=== PATIENT | male | born 1970 | race Caucasian/White ===

== ENCOUNTER 2017-10-04 17:48 | Emergency (ER) | payer SELFPAY ==
[2017-10-04] MEDS ORDERED: NS 0.9% 1000 ML* 1,000 ML IV ONE ×2 (18:17→18:58)
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
[2017-10-04 18:39] LABS: Hematocrit 47 % (42-52); Hemoglobin 16.1 g/dl (14.0-18.0); Mean Corpuscular HGB Conc 34 g/dl (31-36); Mean Corpuscular Hemoglobin 33 pg (27-31); Mean Corpuscular Volume 97 fL (80-94); Red Blood Count 4.89 10^6/ul (4.0-5.4); Red Cell Distribution Width 14 % (10.5-15); White Blood Count 4.8 10^3/ul (3.5-10.8)
[2017-10-04 18:50] LABS: EGFR Non-African American 134.6 (>60)
[2017-10-04 19:05] LABS: ABS Basophils 0 10^3/ul (0-0.2); ABS Eosinophils 0.1 10^3/ul (0-0.6); ABS Monocytes 0.5 10^3/ul (0-0.8); ABS Neutrophils 2.2 10^3/ul (1.5-7.7); ABS Nucleated RBC 0 10^3/ul; Eosinophil % 1.2 % (0-6); Lymphocyte % 41.5 % (25-47); Mean Platelet Volume 7 um3 (7.4-10.4); Nucleated Red Blood Cells % 0; Platelet Count 50 10^3/ul (150-450)
[2017-10-04] MEDS ORDERED: Iohexol 300* (CONTRAST) 10 ML SDV IV ONE (19:41)
--- NOTE | 2017-10-04 20:54 | RAD ---
INDICATION: Left lower quadrant pain COMPARISON: None TECHNIQUE: Axial source images were obtained from the hemidiaphragms to the symphysis pubis following administration of oral and intravenous contrast. 100 mL Omnipaque 300 was utilized. Coronal and sagittal reconstructed images were acquired. Lung bases: There is a small infiltrate in the left lung base.. Liver: The liver is normal in size. There is hepatic steatosis There are no masses. There is no ductal dilatation. Gallbladder: There are no calcified gallstones. There is no evidence of wall thickening or pericholecystic fluid. Spleen: The spleen is normal in size. There are no masses. Pancreas: There is no focal pancreatic mass or ductal dilatation. Adrenal glands: There is no evidence of adrenal mass. Kidneys: The kidneys are normal in size and position. There are prompt nephrograms and there is prompt excretion bilaterally. There are no renal parenchymal masses. There is no evidence of nephrolithiasis. Adenopathy: There is no evidence of adenopathy by size criteria. Fluid collections: There are no free or localized fluid collections. Vessels:There are no significant atherosclerotic changes involving the aorta. There is no focal aneurysm. The iliac vessels are normal in caliber. The IVC appears normal. GI tract: There are no acute CT bowel findings. There is no obstruction. The stomach and small bowel appear normal. The lower GI tract is remarkable for scattered diverticula.. The cecum, ileocecal valve, and terminal ileum appear normal. The appendix is visualized and appear normal. Pelvic organs: The prostate and seminal vesicles appear normal Bladder: There are no bladder masses. Abdominal and pelvic soft tissues: The extraperitoneal abdominal and pelvic soft tissues appear normal.. Osseous structures: There are no acute osseous findings. Other: None IMPRESSION: NO ACUTE CT FINDINGS. SCATTERED DIVERTICULA OF THE SIGMOID COLON. HEPATIC STEATOSIS.
[2017-10-04] MEDS ORDERED: Lidocaine 2% VISCOUS* 15 ML UDC PO ONE (21:22)
[2017-10-04] MEDS ORDERED: Omeprazole CAP* 20 MG PO ONE (21:22)
[2017-10-04] MEDS ORDERED: Al Hydrox/Mg Hydrox/Simet LIQ* 30 ML UDC PO ONE (21:22)
[2017-10-04 21:32] VITALS: BP 124/84
[2017-10-04 22:12] LABS: Urine Appearance Clear; Urine Blood 2+ (Negative); Urine Color Straw; Urine Ketones Negative (Negative); Urine Protein Negative (Negative); Urine Specific Gravity 1.004 (1.010-1.030); Urine Urobilinogen Negative (Negative)
== END 2017-10-04 21:52 | disposition home or self-care (01) ==
LOC: ED 17:48
DX: R10.32 Left lower quadrant pain (principal); Z87.19 Personal history of other diseases of the digestive system; F17.210 Nicotine dependence, cigarettes, uncomplicated; R11.2 Nausea with vomiting, unspecified; R19.7 Diarrhea, unspecified
CPT/HCPCS: 36415; 74177; 80053; 81003; 81015; 83690; 85025; 85060; 86140; 99284; A9270-GY; Q9967

== ENCOUNTER 2018-01-01 09:36 | Emergency (ER) | payer OTHER ==
[2018-01-01] MEDS ORDERED: NS 0.9% 1000 ML* 1,000 ML IV ONE (10:15)
[2018-01-01] MEDS ORDERED: Albuterol/Ipratropium NEB.SOL* Albuterol 2.5 MG/Ipratropium 0.5 MG 3 ML INH ONE (10:15)
--- NOTE | 2018-01-01 10:45 | RAD ---
HISTORY: Shortness of breath COMPARISONS: May 11, 2016 VIEWS: 1: frontal portable view of the chest at 10:26 AM FINDINGS: LINES AND TUBES: None. CARDIOMEDIASTINAL SILHOUETTE: The cardiomediastinal silhouette is normal for portable technique. PLEURA: There is right apical pleural thickening, with improved aeration compared to the previous examination. There is hyperinflation. LUNG PARENCHYMA: The lungs are clear. ABDOMEN: The upper abdomen is clear. There is no subphrenic gas. BONES AND SOFT TISSUES: No bone or soft tissue abnormalities are noted. IMPRESSION: 1. RIGHT APICAL PLEURAL THICKENING, IMPROVED FROM THE PREVIOUS EXAMINATION. 2. COPD.
[2018-01-01] MEDS ORDERED: methylPREDNISolone 125 MG* 2 ML VIAL IV ONE (10:48)
[2018-01-01 11:02] LABS: ABS Basophils 0.1 10^3/ul (0-0.2); ABS Eosinophils 0 10^3/ul (0-0.6); ABS Lymphocytes 1.2 10^3/ul (1.0-4.8); ABS Monocytes 0.5 10^3/ul (0-0.8); ABS Neutrophils 3.7 10^3/ul (1.5-7.7); ABS Nucleated RBC 0 10^3/ul; Eosinophil % 0.5 % (0-6); Hematocrit 44 % (42-52); Hemoglobin 15.1 g/dl (14.0-18.0); Lymphocyte % 22.2 % (25-47); Mean Corpuscular HGB Conc 34 g/dl (31-36); Mean Corpuscular Hemoglobin 33 pg (27-31); Mean Corpuscular Volume 98 fL (80-94); Nucleated Red Blood Cells % 0; Platelet Count 327 10^3/ul (150-450); Red Blood Count 4.54 10^6/ul (4.0-5.4); Red Cell Distribution Width 13 % (10.5-15); White Blood Count 5.5 10^3/ul (3.5-10.8)
[2018-01-01 11:11] LABS: INR 0.88 (0.77-1.02)
[2018-01-01 11:20] LABS: EGFR Non-African American 105.1 (>60)
[2018-01-01 13:21] LABS: Urine Appearance Clear; Urine Blood 2+ (Negative); Urine Color Yellow; Urine Ketones Trace (Negative); Urine Protein 2+(100 mg/dL) (Negative); Urine Urobilinogen Negative (Negative)
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
[2018-01-01 14:13] VITALS: BP 165/114
== END 2018-01-01 14:18 | disposition home or self-care (01) ==
LOC: ED 09:36
DX: J40 Bronchitis, not specified as acute or chronic (principal); R05 Cough; R06.02 Shortness of breath; F17.210 Nicotine dependence, cigarettes, uncomplicated
CPT/HCPCS: 36415; 71045; 80053; 81003; 81015; 83605; 84484; 85025; 85384; 85610; 85730; 86140; 87040; 93005; 96374; 99282; A9270-GY; J2930

== ENCOUNTER 2018-01-25 20:46 | Emergency (ER) | payer MEDICAID, OTHER ==
[2018-01-25] MEDS ORDERED: Albuterol/Ipratropium NEB.SOL* Albuterol 2.5 MG/Ipratropium 0.5 MG 3 ML INH ONE (21:08)
[2018-01-25] MEDS ORDERED: Dexamethasone IV* 4 MG/ML 1 ML (4 MG) IV SLOW PU ONE (21:08)
--- NOTE | 2018-01-25 21:30 | RAD ---
INDICATION: Chest pain. COMPARISON: Comparison is made with prior studies from May 11, 2016 and January 01, 2018. TECHNIQUE: A portable view of the chest was obtained. FINDINGS: Cardiac and mediastinal contours appear to be within normal limits. The lungs are hyperinflated. There is a curvilinear area of increased density and pleural thickening at the right lung apex which is unchanged from the recent prior exam although improved from the study from 2016 likely representing residual scarring. No pleural effusion is present. IMPRESSION: FINDINGS CONSISTENT WITH COPD, NO EVIDENCE FOR ACUTE FINDING.
[2018-01-25 22:52] VITALS: BP 112/74
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
== END 2018-01-25 22:51 | disposition home or self-care (01) ==
LOC: ED 20:46
DX: J44.9 Chronic obstructive pulmonary disease, unspecified (principal); R06.02 Shortness of breath; R05 Cough; F17.210 Nicotine dependence, cigarettes, uncomplicated
CPT/HCPCS: 71045; 96374; 99282; A9270-GY; J1100

== ENCOUNTER 2018-02-08 16:23 | Inpatient (IN) | payer SELFPAY ==
--- NOTE | 2018-02-08 16:52 | RAD ---
INDICATION: Chest pain COMPARISON: January 25, 2018 TECHNIQUE: An AP portable view obtained at 1639 hours is submitted. FINDINGS: Bones/Soft Tissues: There are no acute bony findings. Cardiomediastinal: The cardiomediastinal silhouette is normal. Lungs: There are no infiltrates. There is hyperinflation Pleura: There are no pleural effusions. Other: None IMPRESSION: HYPERINFLATION. NO ACTIVE DISEASE.
[2018-02-08 17:00] LABS: ABS Basophils 0.1 10^3/ul (0-0.2); ABS Eosinophils 0 10^3/ul (0-0.6); ABS Lymphocytes 1.5 10^3/ul (1.0-4.8); ABS Monocytes 0.6 10^3/ul (0-0.8); ABS Neutrophils 6.2 10^3/ul (1.5-7.7); ABS Nucleated RBC 0 10^3/ul; Eosinophil % 0.4 % (0-6); Hematocrit 43 % (42-52); Hemoglobin 14.6 g/dl (14.0-18.0); Lymphocyte % 17.9 % (25-47); Mean Corpuscular HGB Conc 34 g/dl (31-36); Mean Corpuscular Hemoglobin 33 pg (27-31); Mean Corpuscular Volume 96 fL (80-94); Nucleated Red Blood Cells % 0; Red Blood Count 4.47 10^6/ul (4.00-5.40); Red Cell Distribution Width 14 % (10.5-15); White Blood Count 8.5 10^3/ul (3.5-10.8)
[2018-02-08 17:15] LABS: EGFR Non-African American 134.1 (>60)
[2018-02-08] MEDS ORDERED: Albuterol/Ipratropium NEB.SOL* Albuterol 2.5 MG/Ipratropium 0.5 MG 3 ML INH ONE ×2 (17:47→17:48)
[2018-02-08] MEDS ORDERED: methylPREDNISolone 125 MG* 2 ML VIAL IV ONE (17:47)
[2018-02-08 17:53] LABS: Mean Platelet Volume 6.5 um3 (7.4-10.4); Platelet Count 57 10^3/ul (150-450)
[2018-02-08] MEDS ORDERED: Nitroglycerin TAB 0.4 MG* 0.4 MG TAB SL ONE (18:07)
[2018-02-08] MEDS ORDERED: Ondansetron INJ* 2 MG/ML VIAL IV PRN (18:50)
[2018-02-08] MEDS ORDERED: Albuterol 2.5 MG/3 ML NEB.SOL* (0.083%) INH PRN (18:50)
[2018-02-08] MEDS ORDERED: Acetaminophen TAB* 325 MG PO PRN ×2 (18:50→19:05)
[2018-02-08] MEDS ORDERED: Benzonatate CAP* 100 MG PO PRN (18:50)
[2018-02-08] MEDS ORDERED: Nicotine Inhaler* 10 MG AMP INH PRN (18:57)
[2018-02-08] MEDS ORDERED: Mouth Piece, Nicotine* 1 EACH CARTRIDGE INH PRN (18:57)
[2018-02-08 19:44] LABS: INR 0.85 (0.77-1.02)
[2018-02-08] MEDS ORDERED: LORazepam TAB(*) 1 MG PO SCH (20:00)
[2018-02-08] MEDS: guaiFENesin ER TAB 600 MG PO SCH (20:55)
[2018-02-08] MEDS: Thiamine TAB* 100 MG TAB PO SCH (20:56)
[2018-02-08] MEDS: Folic Acid TAB* 1 MG PO SCH (20:56)
[2018-02-08] MEDS: Multivitamins/Minerals TAB PO SCH (21:05)
[2018-02-08] MEDS: DOXYcycline IV* 100 MG in NS 0.9% 250 ML* 250 ML IVPB SCH (21:07)
[2018-02-08] MEDS: NS 0.9% 1000 ML* 1,000 ML IV SCH (22:44)
[2018-02-08 22:50] LABS: Urine Appearance Cloudy; Urine Blood 3+ (Negative); Urine Color Yellow; Urine Ketones 1+ (Negative); Urine Protein 2+(100 mg/dL) (Negative); Urine Specific Gravity 1.013 (1.010-1.030); Urine Urobilinogen Negative (Negative)
[2018-02-08] MEDS: Albuterol/Ipratropium NEB.SOL* Albuterol 2.5 MG/Ipratropium 0.5 MG 3 ML INH SCH (23:06)
[2018-02-08] MEDS: Mometasone/Formoter 200/5 MDI INH SCH (23:06)
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
[2018-02-09] MEDS: Albuterol/Ipratropium NEB.SOL* Albuterol 2.5 MG/Ipratropium 0.5 MG 3 ML INH SCH ×6 (03:00→23:10)
[2018-02-09 05:31] LABS: ABS Basophils 0 10^3/ul (0-0.2); ABS Eosinophils 0 10^3/ul (0-0.6); ABS Lymphocytes 0.3 10^3/ul (1.0-4.8); ABS Monocytes 0.1 10^3/ul (0-0.8); ABS Nucleated RBC 0 10^3/ul; Eosinophil % 0 % (0-6); Hematocrit 42 % (42-52); Hemoglobin 14.6 g/dl (14.0-18.0); Lymphocyte % 9.5 % (25-47); Mean Corpuscular HGB Conc 35 g/dl (31-36); Mean Corpuscular Hemoglobin 33 pg (27-31); Mean Corpuscular Volume 96 fL (80-94); Nucleated Red Blood Cells % 0.1; Platelet Count 48 10^3/ul (150-450); Red Cell Distribution Width 14 % (10.5-15); White Blood Count 3.4 10^3/ul (3.5-10.8)
[2018-02-09 05:47] LABS: EGFR Non-African American 163.1 (>60)
[2018-02-09] MEDS: Mometasone/Formoter 200/5 MDI INH SCH ×2 (07:07→19:18)
--- NOTE | 2018-02-09 08:42 | PN ---
Subjective Date of Service: 02/09/18 Interval History: Patient reports he feels better today with less SOB but continues to c/o sob and chest tightness, report cough but states this is chronic, he states he has been experiencing occasional hemopytosis for "weeks to months" stating it is not everyday and usually only in the morning. Some sputum production. Denies recent fever/chills. No N/V/D. Denies orthopnea. Reports last drink yesterday prior to coming in. Denies hx of seizures or delirium tremens. Objective Active Medications: Acetaminophen (Tylenol Tab*) 650 mg PO Q4H PRN PRN Reason: PAIN Albuterol (Ventolin 2.5 Mg/3 Ml Neb.Marychuy*) 2.5 mg INH Q2H PRN PRN Reason: SOB/WHEEZING Albuterol/Ipratropium (Duoneb (Albuterol 2.5 Mg/Ipratropium 0.5 Mg)) 1 neb INH [id number] AWAKE [facility] Last Admin: 02/09/18 07:07 Dose: 1 neb Benzonatate (Tessalon Cap*) 100 mg PO BID PRN PRN Reason: COUGH Device (Nicotine Mouth Piece*) 1 each INH .USE WITH NICOTROL PRN PRN Reason: CRAVING Folic Acid (Folvite Tab*) 1 mg PO DAILY [facility] Last Admin: 02/08/18 20:56 Dose: 1 mg Guaifenesin (Mucinex*) 1,200 mg PO BID [facility] Last Admin: 02/08/18 20:55 Dose: 1,200 mg Doxycycline Hyclate 100 mg/ (Sodium Chloride) 250 mls @ 250 mls/hr IVPB Q12H [facility] Last Admin: 02/08/18 21:07 Dose: 250 mls/hr Sodium Chloride (Ns 0.9% 1000 Ml*) 1,000 mls @ 100 mls/hr IV PER RATE [facility] Last Admin: 02/08/18 22:44 Dose: 100 mls/hr Magnesium Sulfate 3 gm/ Sodium (Chloride) 106 mls @ 53 mls/hr IVPB ONCE ONE Stop: 02/09/18 10:37 Lorazepam (Ativan Tab(*)) 0 - 6 mg PO .PER WA PROTOCOL [facility]; Protocol Mometasone Furoate/Formoterol Fumar (Dulera 200/5 Mdi*) 2 puff INH BID [facility] Last Admin: 02/09/18 07:07 Dose: 2 puff Multivitamins/Minerals (Theragran/Minerals Tab*) 1 tab PO DAILY [facility] Last Admin: 02/08/18 21:05 Dose: 1 tab Nicotine (Nicotine Inhaler*) 10 mg INH Q2H PRN PRN Reason: CRAVING Ondansetron HCl (Zofran Inj*) 4 mg IV Q6H PRN PRN Reason: NAUSEA Prednisone (Deltasone Tab*) 60 mg PO DAILY [facility] Thiamine HCl (Vitamin B-1 Tab*) 100 mg PO DAILY [facility] Last Admin: 02/08/18 20:56 Dose: 100 mg Vital Signs - 8 hr 02/09/18 02/09/18 02/09/18 02:00 02:10 04:00 Temperature Pulse Rate 66 Respiratory 16 16 Rate Blood Pressure 127/70 (mmHg) O2 Sat by Pulse Oximetry 02/09/18 02/09/18 02/09/18 04:04 06:00 06:08 Temperature 98.3 F Pulse Rate 76 76 Respiratory 16 16 Rate Blood Pressure 145/91 150/92 (mmHg) O2 Sat by Pulse 94 Oximetry 02/09/18 07:10 Temperature Pulse Rate 100 Respiratory 18 Rate Blood Pressure (mmHg) O2 Sat by Pulse 95 Oximetry Oxygen Devices in Use Now: Nasal Cannula Appearance: 47 yo chronically ill appearing male sitting in a wheelchair, notable tremors - A+O x3, anxious Eyes: No Scleral Icterus, PERRLA Ears/Nose/Mouth/Throat: NL Teeth, Lips, Gums, Mucous Membranes Moist Respiratory: Symmetrical Chest Expansion and Respiratory Effort, Clear to Auscultation Cardiovascular: NL Sounds; No Murmurs; No JVD, RRR, No Edema, - - tachycardiac Abdominal: NL Sounds; No Tenderness; No Distention Extremities: No Edema, No Clubbing, Cyanosis Skin: No Rash or Ulcers, No Nodules or Sclerosis Neurological: Alert and Oriented x 3, NL Sensation, NL Gait, NL Muscle Strength and Tone Lines/Tubes/Other Access: Clean, Dry and Intact Peripheral IV Nutrition: Taking PO's Result Diagrams: 02/09/18 05:08 02/09/18 05:08 Assess/Plan/Problems-Billing Assessment: Mr. Moyer is a 47 yo male with a PMH significant for current ETOH , remote hx of IV drug use, hx of pulmonary abscess, COPD, tobacco abuse who presented on 02/08 with c/o chest tightness and SOB. - Patient Problems (1) Alcohol withdrawal Comment: - serum alcohol level 433 -withdrawl symptoms noted with tremors, tachycardia - no hallucinations, A+Ox3. No hx of withdrawl seizures. Continues to be tachycardiac, most likely withdrawl symptoms, plan to start Librium and DC prn ativan per [facility] protocol. Continue IV fluids with NS @ 150 ml/hr - d/t tachycardia - will also draw lactic and blood cx (no obvious signs of infection - does have noted mild leukopenia and thrombocytopenia this am). - continue thiamine, folic acid, electrolyte replacement (Gave 3gms IV magnesium this am) (2) SOB (shortness of breath) Comment: - unclear etiology. SOB/COPD/chronic cough at baseline - pt c/o of worsening symptoms. Plan to r/o PE with elevated DDIMER and report of hemopytosis, tachycardia. Does not appear to be wheezing. Possible COPD exacerbation. No noted pneumonia on chest xray. Hx of lung abscess, no reason at this point to think this has re-developed. Awaiting CTA at this time. Pt started on Doxy on admission, will continue this at this point. - blood cx sent - continue nebs, prednisone (3) COPD exacerbation Comment: - possible COPD exacerbation with increased SOB from baseline. Continue Doxy and lower Prednisone to 40 mg po daily x5 days - continue inhaler and nebs - obtain sputum cx. (4) Transaminitis Comment: - trending down likely secondary to ETOH abuse - US liver/Spleen showing "Spleen is normal in size.Enlarged echogenic liver consistent with hepatic steatosis". - Recommendation for cessation of ETOH (5) Thrombocytopenia Comment: stable. Suspect secondary to ETOH abuse. Continue to monitor (6) Nicotine addiction Comment: continue nicotine replacement. (7) Full code status (8) DVT prophylaxis Comment: SCDs only in the setting of thrombocytopenia Status and Disposition: Inpatient with ETOH Withdrawal, SOB.
--- NOTE | 2018-02-09 08:45 | RAD ---
Indication: Pneumonia. 2 views of the chest including dual energy PA views demonstrates hyperinflated lung julien. Flattening of the diaphragm with increased retrosternal clear space is noted consistent with COPD. Right upper lobe scarring is noted. This was present on a prior CT dated June 30, 2016. IMPRESSION: COPD with no definite pneumonia. Right upper lobe density likely represents scarring.
[2018-02-09] MEDS ORDERED: NS 0.9% 250 ML* 250 ML ONE ×2 (08:54→19:33)
[2018-02-09] MEDS: guaiFENesin ER TAB 600 MG PO SCH ×2 (08:57→20:18)
[2018-02-09] MEDS: Thiamine TAB* 100 MG TAB PO SCH (08:58)
[2018-02-09] MEDS: DOXYcycline IV* 100 MG in NS 0.9% 250 ML* 250 ML IVPB SCH ×2 (08:59→20:11)
[2018-02-09] MEDS ORDERED: predniSONE TAB* 20 MG PO SCH (09:00)
[2018-02-09] MEDS: Multivitamins/Minerals TAB PO SCH (09:05)
[2018-02-09] MEDS: Folic Acid TAB* 1 MG PO SCH (09:05)
[2018-02-09] MEDS ORDERED: Magnesium Sulfate IV* 3 GM in NS 0.9% 100 ML* 100 ML IVPB ONE (09:30)
[2018-02-09] MEDS: NS 0.9% 1000 ML* 1,000 ML IV SCH ×3 (10:06→18:38)
[2018-02-09] MEDS: chlordiazePOXIDE CAP* 25 MG PO SCH ×3 (10:38→20:18)
--- NOTE | 2018-02-09 11:08 | RAD ---
Indication: Cirrhosis, thrombocytopenia. Real-time sonography of the abdomen including spleen and liver were obtained. The liver is enlarged. This measures 19.3 cm in length and is increased in echogenicity. A cyst is noted measuring up to 8 mm. The gallbladder is distended. No gallstones, pericholecystic fluid or wall thickening is noted. The common duct measures 0.4 cm. The right kidney measures 12.0 x 5.9 x 4.9 cm with no hydronephrosis. The pancreas demonstrates no mass or pancreatic duct dilatation. The spleen is normal in size measuring 9.4 cm. IMPRESSION: Enlarged echogenic liver consistent with hepatic steatosis. The spleen is normal in size.
[2018-02-09] MEDS ORDERED: Iohexol 350* (CONTRAST) 500 ML MDV IV ONE (11:12)
--- NOTE | 2018-02-09 11:42 | RAD ---
Indication: Shortness of breath. Contrast: Administered 70.1 ml of OMNIPAQUE 350 mg/ml CTA of the chest performed after IV contrast administration. Coronal and sagittal reconstructed images were obtained. The pulmonary arterial tree is well opacified. No definite pulmonary embolus is noted. Aorta demonstrates no dissection. No aneurysmal dilatation of the aorta is noted. There is no mediastinal or hilar adenopathy noted. The heart demonstrates no pericardial effusion. The trachea and major bronchi appear patent. The lung apices demonstrates emphysematous bullae in the right apex with pleural thickening and scarring. IMPRESSION: No definite pulmonary embolus is noted. Right apical scarring and emphysematous bullae is noted.
[2018-02-09] MEDS ORDERED: Iohexol 350* (CONTRAST) 500 ML MDV IV SCH (12:00)
[2018-02-10] MEDS: Albuterol/Ipratropium NEB.SOL* Albuterol 2.5 MG/Ipratropium 0.5 MG 3 ML INH SCH ×3 (03:45→11:43)
[2018-02-10 06:21] LABS: Hematocrit 40 % (42-52); Hemoglobin 13.4 g/dl (14.0-18.0); Mean Corpuscular HGB Conc 34 g/dl (31-36); Mean Corpuscular Hemoglobin 33 pg (27-31); Mean Corpuscular Volume 97 fL (80-94); Red Cell Distribution Width 14 % (10.5-15); White Blood Count 6.6 10^3/ul (3.5-10.8)
[2018-02-10 06:23] LABS: ABS Basophils 0 10^3/ul (0-0.2); ABS Eosinophils 0 10^3/ul (0-0.6); ABS Lymphocytes 1.1 10^3/ul (1.0-4.8); ABS Monocytes 0.4 10^3/ul (0-0.8)
[2018-02-10 06:42] LABS: EGFR Non-African American 178.2 (>60)
[2018-02-10 06:44] LABS: ABS Nucleated RBC 0 10^3/ul; Eosinophil % 0.2 % (0-6); Lymphocyte % 17.2 % (25-47); Mean Platelet Volume 7.3 um3 (7.4-10.4); Nucleated Red Blood Cells % 0; Platelet Count 39 10^3/ul (150-450)
[2018-02-10] MEDS: DOXYcycline IV* 100 MG in NS 0.9% 250 ML* 250 ML IVPB SCH (07:47)
[2018-02-10] MEDS: Mometasone/Formoter 200/5 MDI INH SCH (08:01)
[2018-02-10] MEDS ORDERED: Potassium Chlor TAB* 20 MEQ TAB.ER PO ONE (08:50)
[2018-02-10] MEDS ORDERED: predniSONE TAB* 20 MG PO SCH (09:00)
[2018-02-10] MEDS ORDERED: Magnesium Oxide TAB* 400 MG PO SCH (09:00)
[2018-02-10] MEDS: guaiFENesin ER TAB 600 MG PO SCH (09:15)
[2018-02-10] MEDS: chlordiazePOXIDE CAP* 25 MG PO SCH ×2 (09:15→14:54)
[2018-02-10] MEDS: Multivitamins/Minerals TAB PO SCH (09:15)
[2018-02-10] MEDS: Folic Acid TAB* 1 MG PO SCH (09:16)
[2018-02-10] MEDS: Thiamine TAB* 100 MG TAB PO SCH (09:16)
[2018-02-10] MEDS ORDERED: Magnesium Sulfate 2 GM IV* 2 GM/50 ML BAG IVPB ONE (09:30)
[2018-02-10 15:16] VITALS: BP 123/88
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
== END 2018-02-10 16:15 | disposition home or self-care (01) | DRG 191 ==
LOC: ED 16:23 → MEDTELE 18:57
PROVIDERS: ADMIT Student in an Organized Health Care Education/Training Program; ATTEND Internal Medicine
DX: J44.1 Chronic obstructive pulmonary disease with (acute) exacerbation (principal); F10.239 Alcohol dependence with withdrawal, unspecified; K21.9 Gastro-esophageal reflux disease without esophagitis; F17.210 Nicotine dependence, cigarettes, uncomplicated; K64.9 Unspecified hemorrhoids; D69.6 Thrombocytopenia, unspecified; Y90.8 Blood alcohol level of 240 mg/100 ml or more; K76.0 Fatty (change of) liver, not elsewhere classified; Z82.0 Family history of epilepsy and other diseases of the nervous system; Z59.0 Homelessness; Z80.3 Family history of malignant neoplasm of breast; Z83.0 Family history of human immunodeficiency virus [HIV] disease
CPT/HCPCS: 36415; 71045; 71046; 71275; 76705; 80048; 80053; 80320; 81003; 81015; 82607; 83605; 83735; 84145; 84484; 85025; 85049; 85379; 85610; 85730; 86703; 86803; 87040; 87522; 93005; 94640; 99285; 99406; A9270-GY; G0480; J2930; J3475; J7512; Q9967

== ENCOUNTER 2018-06-18 11:10 | Observation (INO) | payer MEDICAID ==
[2018-06-18] MEDS ORDERED: Azithromycin IV(*) 500 MG in NS 0.9% 250 ML* 250 ML IVPB ONE (11:30)
[2018-06-18] MEDS ORDERED: cefTRIAXone(*) 1 GM in NS 0.9% 50 ML* 50 ML IVPB ONE (11:30)
[2018-06-18] MEDS ORDERED: NS 0.9% 1000 ML*IV.FLUID IV ONE (11:30)
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
[2018-06-18 11:46] LABS: ABS Basophils 0 10^3/ul (0-0.2); ABS Eosinophils 0.1 10^3/ul (0-0.6); ABS Lymphocytes 2.3 10^3/ul (1.0-4.8); ABS Monocytes 0.9 10^3/ul (0-0.8); ABS Neutrophils 11.1 10^3/ul (1.5-7.7); ABS Nucleated RBC 0 10^3/ul; Eosinophil % 0.7 % (0-6); Hematocrit 52 % (42-52); Hemoglobin 17.5 g/dl (14.0-18.0); Lymphocyte % 15.7 % (25-47); Mean Corpuscular HGB Conc 34 g/dl (31-36); Mean Corpuscular Hemoglobin 31 pg (27-31); Mean Corpuscular Volume 92 fL (80-94); Nucleated Red Blood Cells % 0.2; Platelet Count 214 10^3/ul (150-450); Red Blood Count 5.63 10^6/ul (4.00-5.40); Red Cell Distribution Width 14 % (10.5-15); White Blood Count 14.4 10^3/ul (3.5-10.8)
[2018-06-18 11:59] LABS: INR 0.86 (0.77-1.02)
[2018-06-18 12:09] LABS: EGFR Non-African American 68.2 (>60)
[2018-06-18] MEDS ORDERED: methylPREDNISolone 125 MG* 2 ML VIAL IV ONE (12:31)
[2018-06-18 14:08] LABS: Urine Appearance Cloudy; Urine Blood 2+ (Negative); Urine Color Yellow; Urine Ketones Trace (Negative); Urine Protein 2+(100 mg/dL) (Negative); Urine Red Blood Cell 3+(>10/hpf) (Absent); Urine Specific Gravity 1.018 (1.010-1.030); Urine Urobilinogen Negative (Negative); Urine White Blood Cell Trace(0-5/hpf) (Absent)
[2018-06-18] MEDS ORDERED: Ondansetron INJ* 2 MG/ML VIAL IV PRN (14:38)
[2018-06-18] MEDS ORDERED: Acetaminophen TAB* 325 MG PO PRN (14:38)
[2018-06-18] MEDS ORDERED: Albuterol 2.5 MG/3 ML NEB.SOL* (0.083%) INH PRN (14:38)
[2018-06-18] MEDS ORDERED: NS 0.9% 1000 ML* 1,000 ML IV ONE (14:47)
[2018-06-18] MEDS ORDERED: NS 0.9% 1000 ML* 1,000 ML IV SCH (15:00)
[2018-06-18] MEDS ORDERED: Iohexol 350* (CONTRAST) 500 ML MDV IV ONE (15:06)
[2018-06-18] MEDS: predniSONE TAB* 20 MG PO SCH (15:09)
[2018-06-18] MEDS: Albuterol/Ipratropium NEB.SOL* Albuterol 2.5 MG/Ipratropium 0.5 MG 3 ML INH SCH ×3 (15:12→23:14)
--- NOTE | 2018-06-18 19:21 | HP ---
CC: Dr. Heaton * HISTORY AND PHYSICAL: DATE OF ADMISSION: 06/18/18 PRIMARY CARE PROVIDER: Dr. Heaton. ATTENDING PHYSICIAN WHILE IN THE HOSPITAL: Irene Chang MD * (report dictated by Nickolas Jurado NP). CHIEF COMPLAINT: 1. Cough. 2. Shortness of breath. 3. Hemoptysis. HISTORY OF PRESENT ILLNESS: Mr. Moyer is a 47-year-old male patient. He has a history of COPD; history of infected bleb in the past with pulmonary abscess; history of IV drug use, has not used in 12 years; history of EtOH abuse. He had several months of sobriety prior to this, though he did drink this weekend and on and Sunday and on Sunday. He has a history of tobacco abuse, in addition to this history of hemothorax secondary to trauma and history of hepatitis C, following with Dr. Frederick for this. He is coming into our ER today stating that the last 4 days he has had progressive worsening shortness of breath, he has had dyspnea on exertion, he has been waking up in the morning coughing more and having a dry cough throughout the day, but when he wakes up in the morning he does cough up some blood. He says it looks like blood-tinged type streaky sputum. He does admit to having chills with possible fever throughout the last couple of days and he has noticed that his activity tolerance has decreased significantly and he is just becoming more short of breath, particularly with any type of exertion, even minimal exertion. He denied any chest pain. He does state that with his coughing spells he does sometimes have nausea and dry heaves, but he denied any abdominal pain. He says he has not had any sick contacts. He denies any myalgias or arthralgias. He says that he just has not been feeling well. He was concerned that his breathing was getting worse, so he was concerned that he might be developing pneumonia again like he had previously, so he decided to come into the ED. He denies any changes in medications. Denies having any loss of consciousness and denies having any vomiting or diarrhea. When he came into the ED, it was noted that he was tachycardic, in addition to this he had an elevated white cell count , he was also noted to have a lactic acidosis of 3.8, and because of these findings, we were asked to evaluate for admission. PAST MEDICAL HISTORY: Significant for: 1. COPD. 2. History of pulmonary abscess and infected bleb. 3. History of IV drug use, last known use was 12 years ago. 4. EtOH abuse in the past. He did drink again on , Sunday, Sunday this week. 5. He does have a history of tobacco abuse. 6. He has a history of hemothorax secondary to trauma. 7. He has had a history of cardiac arrest at the age of 8. 8. He has a history of hepatitis C. PAST SURGICAL HISTORY: He has had chest tube. HOME MEDICATIONS: Denied at this point. ALLERGIES TO MEDICATIONS: Include no known drug allergies. FAMILY HISTORY: His mother had dementia. Father of old age. SOCIAL HISTORY: He does smoke a pack a day since the age of 9. He says that the last time he drank was again , Sunday and Sunday. He had 2 beers on Sunday and he has not drank since. He does smoke marijuana occasionally. Denies any IV drug use. He does not wish to appointment a surrogate decision maker. REVIEW OF SYSTEMS: There is no documented fever, although he did admit to feeling warm and having chills previously. He denies having any significant weight change. There was no double vision. There is no ear discharge. He denied having any rhinorrhea or sore throat. He does admit to a cough. He does admit to shortness of breath particularly with exertion. Denies any orthopnea. Denies any nocturnal dyspnea. There was no abdominal pain. There were episodes of nausea, but no vomiting. No dysuria, no frequency. There was no seizure, no loss of consciousness. No pruritus and no skin ulcerations. Review of 14 systems was completed, all others negative. PHYSICAL EXAMINATION GENERAL: At this time, Mr. Moyer is a 47-year-old male patient. He is sitting in the ED stretcher. He does not appear to be in any acute distress. He appears to be well nourished and well developed. VITAL SIGNS: Blood pressure 130/83 with a pulse of 105, when he did come in his pulse was 138; his respirations were 18; his O2 sat was 98%; temperature was 97.6. HEENT: Head: Atraumatic and normocephalic. Eyes: EOMs are intact. Sclerae anicteric and not pale. Throat: Oral mucosa appears to be dry. No oropharyngeal erythema. NECK: Supple. LUNGS: He had rhonchi in the upper lobes along with wheezing noted in his right upper lobe as well. He had equal diaphragmatic expansion. HEART: Sounds S1, S2. He is tachycardic. No murmurs, rubs, or gallops. ABDOMEN: Soft. It was flat. It was nontender. Bowel sounds present. EXTREMITIES: Pulses were 2+ throughout. He is moving all 4 extremities with 5/ 5 strength. NEUROLOGICAL: He is awake. He is alert. He is oriented x3. His tongue is midline. Head Of Loss Prevention were equal. He had no gross focal deficits. SKIN: Intact. DIAGNOSTIC STUDIES/LAB DATA: Today, WBC of 14.4; RBC of 5.63; his hemoglobin was 17.5, his hemoglobin normally runs around 14; hematocrit of 52; his platelet count today was 214,000, previously he was noted to be significantly thrombocytopenic but it is now improved. His INR was 0.86, PTT of 32.6. His sodium was 136, potassium was 3.5, chloride of 98, his bicarb was 22, his BUN was 13, creatinine 1.15, glucose 180, lactic 3.8, calcium 9.7. Total bili 1, AST 34, ALT 18, alk phos 101. Troponin 0. CRP of 5.71. Albumin of 4.4. Urine showed 2+ protein, trace ketones, 2+ blood, 3+ rbc's, present squamous epithelial cells. Toxicology was negative for alcohol. The patient did have a chest x-ray obtained today, which showed hyperinflation consistent with COPD. No active cardiopulmonary disease. He had an EKG obtained today, which is showing a sinus tachycardia, rate of 139. He does have what appears to be a right bundle branch block. His QTc was 552. When you review it to the previous EKG, the right bundle branch does appear to be new and the heart rate appears to be faster. He has no new T-wave inversions or ST elevation. Old medical records were reviewed. ASSESSMENT AND PLAN: Mr. Moyer is a 47-year-old male patient with multiple medical problems, coming into the ED today with complaints of coughing particularly hemoptysis, in addition to this worsening shortness of breath with exertion. He will be admitted under inpatient status for: 1. Sepsis. It is secondary to presumed upper respiratory infection. It does not look like he has pneumonia and no other obvious source of infection. He was cultured down here, given antibiotics and given 30 cc/kg of fluids. I will repeat his lactic as he it was 3.8, but his heart rate actually is improved now , he is in the low 100s. He says he is feeling better. At times, heart rate was getting down into the 90s, which was much improved from the 130 range, so I am going to repeat the EKG now, continue to hydrate him, wait for sources, wait for cultures, and I will continue to monitor. 2. Chronic obstructive pulmonary disease with exacerbation. We will go ahead and check a CTA of the chest given the hemoptysis, which is concerning given his history. I will put him on antibiotics. We will put him on steroids inhaled and p.o., nebs standing. Continue with aggressive pulmonary toileting and we will continue to follow. Depending on CTA findings, we may need to consider touching base with Dr. Mike. He has not had any episodes of hemoptysis down here. If he does give us a sample, we will send it for culture and I will get a flu swab as well. 3. History of EtOH abuse. I put him on the [facility] protocol. I also asked social work to evaluate. 4. Hepatitis C. His last quantitative study done outpatient here was undetectable. Have him follow up with Dr. Frederick. 5. History of tobacco abuse. I have offered smoking cessation counseling. 6. DVT prophylaxis: Because of the possible hemoptysis, I have only placed him on SCDs. 7. Fluids, electrolytes, and nutrition: He can have a regular diet. 8. Code status: He is a full code. TIME SPENT: Time spent on the admission was 60 minutes, greater than half the time spent [id number] with the patient obtaining my history and physical, other half of the time spent going over the plan of care with the patient and implementing the plan of care. I did discuss the plan of care with my attending, Dr. Chang; she is in agreement. NICKOLAS JURADO NP [id number]/[facility] #: [id number] MARLENA
[2018-06-18] MEDS: Mometasone/Formoter 200/5 MDI INH SCH (19:47)
[2018-06-19] MEDS: diPHENhydraMINE PO* 25 MG PO PRN ×2 (02:03→21:59)
[2018-06-19] MEDS: Melatonin 3 MG TAB PO PRN ×2 (02:03→21:59)
[2018-06-19] MEDS: Albuterol/Ipratropium NEB.SOL* Albuterol 2.5 MG/Ipratropium 0.5 MG 3 ML INH SCH ×4 (03:08→19:42)
[2018-06-19] MEDS: Mometasone/Formoter 200/5 MDI INH SCH ×2 (07:07→19:43)
[2018-06-19 08:17] LABS: ABS Basophils 0 10^3/ul (0-0.2); ABS Eosinophils 0 10^3/ul (0-0.6); ABS Monocytes 0.6 10^3/ul (0-0.8); ABS Neutrophils 6.5 10^3/ul (1.5-7.7); ABS Nucleated RBC 0 10^3/ul; Eosinophil % 0 % (0-6); Hematocrit 39 % (42-52); Hemoglobin 13.4 g/dl (14.0-18.0); Mean Corpuscular HGB Conc 34 g/dl (31-36); Mean Corpuscular Hemoglobin 31 pg (27-31); Mean Corpuscular Volume 92 fL (80-94); Nucleated Red Blood Cells % 0; Platelet Count 112 10^3/ul (150-450); Red Blood Count 4.27 10^6/ul (4.00-5.40); Red Cell Distribution Width 14 % (10.5-15); White Blood Count 8.1 10^3/ul (3.5-10.8)
[2018-06-19 08:27] LABS: INR 0.87 (0.77-1.02)
[2018-06-19] MEDS: predniSONE TAB* 20 MG PO SCH (08:28)
[2018-06-19] MEDS: Folic Acid TAB* 1 MG PO SCH (08:28)
[2018-06-19] MEDS: Thiamine TAB* 100 MG TAB PO SCH (08:28)
[2018-06-19] MEDS: Multivitamins/Minerals TAB PO SCH (08:28)
[2018-06-19 08:42] LABS: EGFR Non-African American 127.1 (>60)
[2018-06-19] MEDS ORDERED: Potassium Chlor TAB* 20 MEQ TAB.ER PO ONE (10:20)
[2018-06-19] MEDS: LORazepam TAB(*) 1 MG PO SCH (10:53)
[2018-06-19] MEDS: KCL 10 MEQ/50 ML IVPREMIX* 10 MEQ/50 ML BAG IV SCH ×2 (10:53→12:00)
[2018-06-19] MEDS ORDERED: cefTRIAXone(*) 1 GM in NS 0.9% 50 ML* 50 ML IVPB SCH (13:00)
[2018-06-19] MEDS ORDERED: Azithromycin IV(*) 500 MG in NS 0.9% 250 ML* 250 ML IVPB SCH (13:30)
[2018-06-19] MEDS ORDERED: Nicotine Inhaler* 10 MG AMP INH PRN (15:45)
[2018-06-19] MEDS: Nicotine PATCH 21 MG/24 HR* PATCH TRANSDERM SCH (16:16)
--- NOTE | 2018-06-19 19:08 | PN ---
Subjective Date of Service: 06/19/18 Interval History: Patient seen and examined, states his breathing is better, less SOB and more ambulatory. Denies fevers or chills. Very anxious for discharge to home. Objective Active Medications: Acetaminophen (Tylenol Tab*) 650 mg PO Q4H PRN PRN Reason: FEVER/PAIN Albuterol (Ventolin 2.5 Mg/3 Ml Neb.Marychuy*) 2.5 mg INH Q2H PRN PRN Reason: SOB/WHEEZING Albuterol/Ipratropium (Duoneb (Albuterol 2.5 Mg/Ipratropium 0.5 Mg)) 1 neb INH [id number] AWAKE [facility] Last Admin: 06/19/18 12:41 Dose: 1 neb Diphenhydramine HCl (Benadryl Po*) 25 mg PO BEDTIME PRN PRN Reason: INSOMNIA Last Admin: 06/19/18 02:03 Dose: 25 mg Folic Acid (Folvite Tab*) 1 mg PO DAILY [facility] Last Admin: 06/19/18 08:28 Dose: 1 mg Ceftriaxone Sodium 1 gm/ (Sodium Chloride) 50 mls @ 200 mls/hr IVPB Q24H [facility] Last Admin: 06/19/18 13:32 Dose: 200 mls/hr Azithromycin 500 mg/ Sodium (Chloride) 250 mls @ 250 mls/hr IVPB Q24H [facility] Last Admin: 06/19/18 14:31 Dose: 250 mls/hr Sodium Chloride (Ns 0.9% 1000 Ml*) 1,000 mls @ 125 mls/hr IV PER RATE [facility] Last Admin: 06/18/18 15:19 Dose: 125 mls/hr Lorazepam (Ativan Tab(*)) 0 - 6 mg PO .PER [facility] PROTOCOL [facility]; Protocol Last Admin: 06/19/18 10:53 Dose: 2 mg Melatonin (Melatonin) 3 mg PO BEDTIME PRN PRN Reason: INSOMNIA Last Admin: 06/19/18 02:03 Dose: 3 mg Mometasone Furoate/Formoterol Fumar (Dulera 200/5 Mdi*) 2 puff INH BID [facility] Last Admin: 06/19/18 07:07 Dose: 2 puff Multivitamins/Minerals (Theragran/Minerals Tab*) 1 tab PO DAILY [facility] Last Admin: 06/19/18 08:28 Dose: 1 tab Nicotine (Nicotine Inhaler*) 10 mg INH Q2H PRN PRN Reason: CRAVING Nicotine (Nicotine Patch 21 Mg/24 Hr*) 1 patch TRANSDERM DAILY [facility] Last Admin: 06/19/18 16:16 Dose: 1 patch Pharmacy Profile Note (Nicotine Patch Removal Note*) 1 note PATCH OFF 2100 [facility] Prednisone (Deltasone Tab*) 60 mg PO DAILY [facility] Last Admin: 06/19/18 08:28 Dose: 60 mg Thiamine HCl (Vitamin B-1 Tab*) 100 mg PO DAILY [facility] Last Admin: 06/19/18 08:28 Dose: 100 mg Vital Signs - 8 hr 06/19/18 06/19/18 06/19/18 11:38 12:41 13:08 Temperature 97.7 F 98.2 F Pulse Rate 94 102 96 Respiratory 18 14 17 Rate Blood Pressure 156/90 153/96 (mmHg) O2 Sat by Pulse 98 96 97 Oximetry 06/19/18 06/19/18 15:38 17:12 Temperature 98.5 F 98.1 F Pulse Rate 101 112 Respiratory 18 22 Rate Blood Pressure 164/91 155/88 (mmHg) O2 Sat by Pulse 95 97 Oximetry Oxygen Devices in Use Now: None Appearance: alert, anxious Eyes: No Scleral Icterus, PERRLA Ears/Nose/Mouth/Throat: NL Teeth, Lips, Gums, Mucous Membranes Moist Neck: NL Appearance and Movements; NL JVP, Trachea Midline Respiratory: Symmetrical Chest Expansion and Respiratory Effort, - - right apex with poor air exchange, no rales or wheeze, diminished throughout Cardiovascular: NL Sounds; No Murmurs; No JVD, RRR Abdominal: NL Sounds; No Tenderness; No Distention Extremities: No Edema, No Clubbing, Cyanosis Skin: No Rash or Ulcers Neurological: Alert and Oriented x 3, NL Gait Nutrition: Taking PO's Result Diagrams: 06/19/18 07:45 06/19/18 07:45 Microbiology and Other Data: Microbiology 06/18/18 13:49 Urine Culture - Final Urine No Growth (<1,000 CFU/mL) 06/18/18 11:43 Aerobic Blood Culture - Preliminary Blood Venous No Growth Day 1 Anaerobic Blood Culture - Preliminary No Growth Day 1 06/18/18 11:34 Aerobic Blood Culture - Preliminary Blood Venous No Growth Day 1 Anaerobic Blood Culture - Preliminary No Growth Day 1 06/19/18 11:00 Gram Stain - Final Sputum 06/18/18 14:38 Legionella Urinary Antigen - Final Urine Negative Legionella Antigen Streptococcus pneumoniae Ag Screen - Final Negative S. pneumo Antigen 06/18/18 15:10 Influenza Types A,B Antigen - Final Nasal Specimen received for Influenza A/B Molecular testing Diagnostic Imaging: Patient Name: TIA STROUD Medical Record#: [id number] Ordering Physician: Bigg Jurado OFFICE MANAGER RECEPTIONIST Acct.#: [id number] : 1970 Age: 47 Sex: M Location: [address] [place] [address] MEDICAL Exam Date: 06/18/181437 ADM Status: ADM Jamir Order Information: CTA CHEST Accession Number: [id number] CPT: 33901 INDICATION: Hemoptysis, shortness of breath. COMPARISON: Comparison is made with a prior study from February 09, 2018. TECHNIQUE: A CT angiogram of the chest was performed with intravenous following intravenous injection of 146 ml of Omnipaque 350 nonionic contrast. Contiguous axial sections were obtained from the lung apices through the lung bases. Images were reconstructed in the coronal and sagittal planes. The exam had to be performed twice. The first study was limited due to in adequate contrast timing secondary to pressure limitation of the patient's IV. FINDINGS: PULMONARY ARTERIES: There is relatively homogeneous opacification of the pulmonary arteries. No intraluminal filling defect or pulmonary embolism is seen. HEART: The heart is within normal limits in size. No pericardial effusion is present. There are coronary calcifications present. THORACIC AORTA: There is homogeneous opacification of the thoracic aorta. There is ectasia of the ascending thoracic aorta measuring up to 4.0 cm in transverse dimension which is unchanged. LUNGS: There is moderate emphysematous change most prominent in the upper lobes. There is a cavitary lesion present at the right lung apex measuring 5.0 x 2.1 cm in size which appears slightly decreased in size from the prior study. No pleural effusion is present. MEDIASTINUM: No significant enlarged mediastinal lymph nodes are seen. There is a mildly enlarged 1.2 cm right hilar lymph node with appears unchanged. ABDOMEN: No acute findings are seen on the visualized portion of the upper abdomen. BONES: No significant focal osseous abnormality is seen. IMPRESSION: 1. NO EVIDENCE FOR PULMONARY EMBOLISM. 2. LARGE RIGHT UPPER LOBE CAVITARY LESION SLIGHTLY DECREASED IN SIZE. LIKELY SECONDARY TO AN INFECTIOUS LESS LIKELY A NEOPLASTIC PROCESS. 3. EMPHYSEMA. 4. ECTASIA OF THE ASCENDING THORACIC AORTA, UNCHANGED. <Electronically signed by Lewis Heredia MD in OV> 06/18/181617 Dictated By: Lewis Heredia MD Dictated Date/Time: 06/18/181617 This report is only to be considered final once signed by the Provider(s) as displayed in the "<Electronically Signed by >" field (s). Absence of a signature indicates the report is in a draft status and still needs to be finalized. In the event this document was created by someone other than the signing Provider, the individual initiating the document will be listed in the "Entered by:" or "Dictated by:" julien. 1 of 2 Assess/Plan/Problems-Billing Assessment: This is a 47 year old male with history of emphysema that presented with acute SOB with minimal exertion. - Patient Problems (1) Right upper lobe pneumonia Code(s): J18.9 - PNEUMONIA, UNSPECIFIED ORGANISM SNOMED Code(s): 770247421 Comment: - Unclear if his chronic changes in the RU lobe is representing infection again - Will continue to treat empirically and with steroids - Nebs - Supportive care (2) History of lung abscess Code(s): Z87.09 - PERSONAL HISTORY OF OTHER DISEASES OF THE RESPIRATORY SYSTEM SNOMED Code(s): 436106369 Comment: - In setting of COPD/emphysema - CT as above - Followed with Dr. Mike in the past - Continue inhalers and nebs (3) Nicotine addiction Code(s): F17.200 - NICOTINE DEPENDENCE, UNSPECIFIED, UNCOMPLICATED SNOMED Code (s): 77588822 Comment: - continue nicotine replacement. (4) SOB (shortness of breath) Code(s): R06.02 - SHORTNESS OF BREATH SNOMED Code(s): 486656065 Comment: - COPD exacerbation vs PNA - SOB improving since last night - Continue IV prednisone, ceftriaxone, nebs (5) History of ETOH abuse Code(s): Z87.898 - PERSONAL HISTORY OF OTHER SPECIFIED CONDITIONS SNOMED Code( s): 390672823 Comment: - Was sober, but states he drank over the weekend - Does not appear to be detoxing, continue to monitor, add WAM if needed (6) DVT prophylaxis Current Visit: No Code(s): CXQ8481 - SNOMED Code(s): 560356669 Comment: - Ambulatory (7) Full code status Code(s): Z78.9 - OTHER SPECIFIED HEALTH STATUS SNOMED Code(s): 155118381 Status and Disposition: inpatient.
--- NOTE | 2018-06-19 20:49 | CONS ---
PULMONARY CONSULTATION REPORT: DATE OF CONSULT: 06/19/18 CONSULTATION REQUESTED BY: Bigg Jurado NP REASON FOR CONSULT: Evaluation of hemoptysis and abnormal CT chest. HISTORY OF PRESENT ILLNESS: The patient is a 47-year-old male with history of COPD, history of emphysematous lung disease and blebs with history of infected bleb and pulmonary abscess in the past, prior history of IV drug abuse, has an alcohol abuse, has been sober and abstinent from drug abuse. The patient presented for evaluation of worsening cough, shortness of breath, and episode of hemoptysis. The patient reports having worsening of cough and shortness of breath for the past 4 days. Has been having significant cough, mostly dry and worse in the morning. He also noticed blood sputum prior to the presentation. He has been having chills and subjective fevers prior to this. His symptoms were gradually getting worse and he decided to come into the emergency room for further evaluation. The patient denies chest pain, palpitations, dizziness, syncope, nausea, vomiting, diarrhea. He was noted to be tachycardic in the emergency room and was found to have elevated white count with lactic acid of 3.8. He was admitted with working diagnosis of sepsis from pneumonia. Further evaluation in the emergency room included chest x-ray and CT scan of the chest. I have personally reviewed chest x-ray and CT scan of the chest. Chest x-ray with evidence of hyperinflation with no acute abnormality that was visible. CT scan of the chest reveals significant emphysematous and bullous lung disease with thickened bleb in the right upper lobe, which was also seen in the past. There is evidence of compression atelectasis around the bleb area. There is less prominence of this lesion in comparison to his prior CT. He also noted to have patchy airspace opacities on the right side. No significant mediastinal adenopathy was noted. Slightly prominent right hilar lymph node, which was also seen in the past. The patient was started on broad-spectrum antibiotics and bronchodilators. He was also initiated on prednisone for acute COPD exacerbation. The patient was seen and examined at bedside. The patient reports improvement in symptoms. He had another episode of streaks of blood this morning with phlegm. He remains afebrile. Denies any other issues at this time. PAST MEDICAL HISTORY: 1. Emphysematous disease with blebs. 2. History of pulmonary abscess and infected bleb. 3. History of IV drug abuse, last one was 12 years ago. 4. Ethyl alcohol abuse in the past, has been drinking intermittently. 5. History of tobacco abuse. The patient still smokes. 6. History of hemothorax secondary to trauma. 7. Cardiac arrest at the age of 8. 8. Hepatitis C. PAST SURGICAL HISTORY: Chest tube required for pneumonia and infected pleural fluid. MEDICATIONS: He has not been on any medications at home prior to hospitalization. ALLERGIES: No known drug allergies. FAMILY HISTORY: Mother has dementia, father of old age. SOCIAL HISTORY: Smokes a pack a day since age 9. He has been in alcohol rehab , has had 2 beers on Sunday. Smokes marijuana occasionally. Denies any further IV drug abuse. REVIEW OF SYSTEMS: All 14 systems reviewed and as per HPI. PHYSICAL EXAM: The patient in bed, in no apparent distress. Vital Signs: Temperature 98.2, pulse 96 beats per minute, respiratory rate 17 per minute, O2 sat 97% on room air, blood pressure 153/96. HEENT: Pupils equal, reactive to light. Mucous membranes moist. Lungs: Scattered wheeze present, prolonged expiratory phase. Cardiovascular: S1, S2 present, regular. Abdomen: Soft, nontender, nondistended. Bowel sounds present. Extremities: Normal range of motion. DIAGNOSTIC STUDIES/LAB DATA: WBC count 8.1, decreased from 14.4 on admission, hemoglobin 13.4, hematocrit 39, platelet count 111. Sodium 140, potassium 2.8, chloride 107, bicarb 24. BUN 9, creatinine 0.67. Lactic acid decreased from 3.8 on admission to 0.6. Procalcitonin less than 0.1. Alcohol less than 10. Influenza A and B negative. Negative Legionella and Strep pneumo antigen sputum cultures negative to date. Chest x-ray and CT of the chest as described above in HPI. IMPRESSION AND RECOMMENDATIONS: 47-year-old male, former smoker with significant smoking history with acute chronic obstructive pulmonary disease exacerbation and community-acquired pneumonia. The patient is clinically improving, not hypoxemic. CT of the chest was reviewed - no concern with infected bleb. He had this bleb for a long time with interval decrease in size. I do not suspect tuberculosis or any anaerobic infection there. He has mild hemoptysis, which is from bronchitis or pneumonia. He is definitely improving. Continue with current management. Thank you for allowing me to participate in the care of your patient. Will follow up with you. [id number]/[facility] #: [id number] MARLENA
[2018-06-20] MEDS ORDERED: hydrALAZINE IV* 20 MG/ML VIAL IV SLOW PU ONE (00:30)
[2018-06-20] MEDS: LORazepam TAB(*) 1 MG PO SCH ×2 (02:23→06:54)
[2018-06-20 06:46] LABS: ABS Basophils 0 10^3/ul (0-0.2); ABS Eosinophils 0 10^3/ul (0-0.6); ABS Lymphocytes 1.6 10^3/ul (1.0-4.8); ABS Monocytes 0.5 10^3/ul (0-0.8); ABS Neutrophils 5.3 10^3/ul (1.5-7.7); ABS Nucleated RBC 0 10^3/ul; Eosinophil % 0.2 % (0-6); Hematocrit 38 % (42-52); Hemoglobin 13.1 g/dl (14.0-18.0); Lymphocyte % 21.5 % (25-47); Mean Corpuscular HGB Conc 35 g/dl (31-36); Mean Corpuscular Hemoglobin 32 pg (27-31); Mean Corpuscular Volume 91 fL (80-94); Mean Platelet Volume 8.8 fL (7.4-10.4); Nucleated Red Blood Cells % 0.1; Platelet Count 118 10^3/ul (150-450); Red Blood Count 4.13 10^6/ul (4.00-5.40); Red Cell Distribution Width 14 % (10.5-15); White Blood Count 7.5 10^3/ul (3.5-10.8)
[2018-06-20 06:53] VITALS: BP 158/98
[2018-06-20] MEDS: Nicotine PATCH 21 MG/24 HR* PATCH TRANSDERM SCH ×2 (06:53→09:17)
[2018-06-20] MEDS: Albuterol/Ipratropium NEB.SOL* Albuterol 2.5 MG/Ipratropium 0.5 MG 3 ML INH SCH ×2 (07:09→07:28)
[2018-06-20] MEDS: Mometasone/Formoter 200/5 MDI INH SCH (07:10)
[2018-06-20 07:11] LABS: EGFR Non-African American 136.5 (>60)
[2018-06-20] MEDS ORDERED: Magnesium Sulfate IV* 3 GM in NS 0.9% 100 ML* 100 ML IVPB ONE (08:01)
[2018-06-20] MEDS ORDERED: Potassium Chlor TAB* 20 MEQ TAB.ER PO ONE (08:02)
[2018-06-20] MEDS: predniSONE TAB* 20 MG PO SCH (09:11)
[2018-06-20] MEDS: Thiamine TAB* 100 MG TAB PO SCH (09:12)
[2018-06-20] MEDS: Folic Acid TAB* 1 MG PO SCH (09:12)
[2018-06-20] MEDS: Multivitamins/Minerals TAB PO SCH (09:12)
[2018-06-20] MEDS ORDERED: Albuterol/Ipratropium NEB.SOL* Albuterol 2.5 MG/Ipratropium 0.5 MG 3 ML INH ONE (10:21)
--- NOTE | 2018-06-20 12:45 | PN ---
Hospitalist Progress Note Date of Service: 06/20/18 Patient left AMA after MUCH discussion regarding his condition and the need to stay for treatment. Patient continued to refuse. AMA form signed by patient and myself with nurse as witness. Please see Discharge Summary for details.
[2018-06-20] MEDS ORDERED: Nicotine Patch Removal NOTE PATCH OFF SCH (21:00)
--- NOTE | 2018-06-21 07:00 | DS ---
CC: Dr. Heaton; Dr. Almodovar; Dr. Chang; Dr. Mike DISCHARGE SUMMARY: DATE OF ADMISSION: 06/18/18 DATE OF LEAVING AGAINST MEDICAL ADVICE: 06/20/18 ATTENDING FOR THIS ADMISSION: Dr. Irene Chang PRIMARY CARE PROVIDER: Williams Heaton MD MY ATTENDING FOR TODAY: Dr. Zac Almodovar (dictated by Trinity Salazar NP) HOSPITAL COURSE: This is a 47-year-old male patient with a past medical history of COPD, continued t obacco abuse, emphysema with infected bleb, pulmonary abscess, history of IV drug use, and history of EtOH abuse that presented to the emergency department on the evening of 06/18/18 with complaint of s hortness of breath. Patient states he was dyspneic with mild exertion, unable to walk across the room without having to stop and catch his breath. Patient was found to be hypoxic in the emergency depar tment when he came in for evaluation. He was also tachycardic, had an elevated white cell count and some lactic acidosis. The patient was admitted for sepsis and pneumonia. Given his history and emphy sematous changes, it was felt that admission, aggressive fluid management and antibiotics would be wa rranted. Patient was participating in his plan of care, accepting antibiotics, fluids, and nebulizer treatments. Patient when I first saw him on the day of 06/19/18, stated he wanted to leave that day. I explained to the patient that he had some critical lab values and his breathing was not sufficien t and that he should stay and continue to receive treatment. Patient went on to discuss that he had work to do and that he was feeling better and again at that I convinced the patient to stay and lamine nue treatment. However, this morning, he had some alterations in his electrolytes. His magnesium le beverly was 1.1 and his lung sounds were further diminished and quite wheezy. I ordered an additional ne b treatment, magnesium supplementation, and potassium supplementation; however, approximately half an hour later, I received a call and an overhead page from the nurse that the patient was stating he wa s leaving against medical advice. I had explained to the patient earlier in the morning that to leav e AMA would not be in his best interest and could potentially be dangerous for him. Patient stated h is understanding that he could suffer through decompensation or even if he left against medical advice. Patient stated his full understanding of these issues and still decided to leave. He did s ign paperwork for leaving against medical advice, which was witnessed by the nurse. His IVs were rem yakov for safety and patient stated to the nurse that if he felt bad, he would come back to the emerge ncy department if needed. There is also a note from the nurse saying that the patient appeared to be hallucinating, I did not experience any of this with the patient. He was alert and oriented x3 and again stated his knowledge and understanding of the ramifications of him leaving against medical advi ce, did not appear to be hallucinating to me and although aggressive at times was appropriate in his behavior. Patient also stated that this was no reflection on the care that he received. He just did not feel it was necessary for him to stay because he was feeling better. Patient left the building after his IVs were removed. LABORATORY DATA: His laboratory work on the day of discharge revealed WBC 7.5, RBCs 4.13, hemoglobin 13.1, hematocrit 38, platelets 118. Sodium 140, potassium 3.3, chloride 108, CO2 24, BUN 11, creati nine 0.63, GFR 136.5, glucose 98, calcium 8.5, magnesium 1.3, bilirubin 0.20, total protein 5.8, proc alcitonin was 0.1. DISPOSITION: Patient left against medical advice. I suggested he follow up with his primary care pr melani and also Dr. Mike from Pulmonology. I do not know that the patient will comply with these r ecommendations; however, these recommendations were made to him prior to his departure. TRINITY SALAZAR NP [id number]/[facility] #: [id number]
== END 2018-06-20 11:03 | disposition left against medical advice (07) ==
LOC: ED 11:10 → MED 14:34
PROVIDERS: ADMIT Internal Medicine; ATTEND Internal Medicine
DX: J18.9 Pneumonia, unspecified organism (principal); J44.1 Chronic obstructive pulmonary disease with (acute) exacerbation; Z87.09 Personal history of other diseases of the respiratory system; F17.210 Nicotine dependence, cigarettes, uncomplicated; R06.02 Shortness of breath; R05 Cough; R07.9 Chest pain, unspecified; R11.2 Nausea with vomiting, unspecified; J85.1 Abscess of lung with pneumonia; J43.9 Emphysema, unspecified; Z86.74 Personal history of sudden cardiac arrest
CPT/HCPCS: 36415; 71046; 71275; 80048; 80053; 80320; 81003; 81015; 83605; 83735; 84145; 84484; 85025; 85610; 85730; 86140; 87040; 87070; 87086; 87205; 87899; 93005; 94640; 96365; 96366; 96375; 99285; A9270-GY; G0378; G0480; J0360; J0456; J0696; J2930; J3475; J3480; J7512; Q9967

== ENCOUNTER 2018-06-20 13:15 | Emergency (ER) | payer MEDICAID ==
--- OUTSIDE RECORDS SUMMARY | 2018-06-20 13:27 | XMS REPORT ---
:1970 External Reference #:[id number] Author Organization [employer] Address [address] [place] [address] Phone [phone] Care Team Providers Name Role Phone Williams Heaton MD Primary Care Physician Unavailable Payers Type Date Identification Numbers Payment Provider Subscriber Medicaid Expires: 2016 Policy Number: [id number] Medicaid Tia [employer] Name: 1 1 [address] PayID: [id number] [place] [address] Commercial Effective: 2016 Policy Number: [id number] Marcell Stroud Expires: 2016 PayID: [id number] [address] [place] [address] [facility] Policy Number: [id number] Medicaid Tia [employer]oud Group Name: 1 1 [address] PayID: [id number] [place] [address] Problems Date Description Provider Status Onset: 06/13/2016 Chronic obstructive lung disease Juarez Dyson M.D. Active Note: w/ asthmatic component Onset: 06/13/2016 Abscess of lung Juarez Dyson M.D. Active Note: Abscess vs infected bleb vs PNA Onset: 06/13/2016 History of alcohol abuse Juarez Dyson M.D. Active Onset: 06/13/2016 History of drug abuse Juarez Dyson M.D. Active Onset: 04/11/2018 Viral hepatitis C Williams Heaton M.D.,FACP Active Onset: 04/11/2018 Light cigarette smoker (1-9 Williams Heaton M.D.,FACP Active cigs/day) Family History Date Family Member(s) Problem(s) Comments Father Coronary Artery Disease (CAD) CABg 2 vessel at 78 Mother Hypertension Siblings 6 was 7, one First Brother due to AIDS () Social History Type Date Description Comments Marital Status Single Lives With living with friend, homeless Occupation odd jobs Cigarette Use Patient is a current cigarette smoker, smokes every day Cigarette Use currently smokes 1/2 Pack Daily ETOH Use Has consumed alcohol in the former abuse- still several past at a time, some days w/o any Smoking Light tobacco smoker (10 or fewer cigarettes/day) Recreational Drug Use Former Drug User last 6 years General Hx Text 2 children Allergies, Adverse Reactions, Alerts Date Description Reaction Status Severity Comments 06/13/2016 NKDA active Medications Medication Date Status Form Strength Qnty SIG Indications Ordering Provider Nicotrol 04/11/ Active Inhaler 10mg 168un 1 Williams 2018 its cartridges D. Sullivan, every 2 M.D.,FACP hours as needed Mavyret 04/08/ Active Tablets 100-40mg 84tab 3 tabs by Zay 2018 s mouth once D. daily Arleth Vincent Dulera 02/21/ Active Aerosol 200-5mcg/A 8.800 2 puffs J44[address] gm inhaled Senner, every day DO Ventolin HFA / Active Aerosol 108(90Base 2 puffs by Unknown 0000 ) mcg/Act mouth four times a day as needed Bupropion HCL 04/11/ Hx Tablets ER 150mg 60tab 1 by mouth Williams ER (SR) 2018 - 12HR s every D. Sullivan, 05/07/ morning for M.D.,FACP 2018 10 days then 1 by mouth twice a day Ceftriaxone / Hx Solution 2gm iv every 24 Unknown Sodium 0000 - Rec hours x 28 2015 Spiriva / Hx Capsules 18mcg 1 unit Unknown Handihaler 0000 - inhalation daily 2017 Thiamine HCL / Hx Tablets 100mg 1 by mouth Unknown 0000 - every day 2017 Omeprazole / Hx Capsules 20mg 1 by mouth Unknown 0000 - DR every day 2015 Nicotine /00/ Hx Patches 21mg/24HR every 24 Unknown 0000 - 24HR hours 2015 Multiple /00/ Hx Tablets 1 by mouth Unknown Vitamin 0000 - every day 2017 Dulera 00/00/ Hx Aerosol 200-5mcg/A 2 puff J44.9 Unknown 0000 - ct twice a day 2017 Culturelle 00/00/ Hx Capsules 1 by mouth Unknown 0000 - every day 2017 Ibuprofen 00/00/ Hx Tablets 600mg 1 by mouth Unknown 0000 - every 8 as 06/21/ needed 2016 Folic Acid 00/00/ Hx Tablets 1mg 1 by mouth Unknown 0000 - every day 2015 Tums 00/00/ Hx Chewtabs 500mg 1 by mouth Unknown 0000 - every 4 hrs 02/20/ as needed 2018 Tessalon Perles 00/ Hx Capsules 100mg 1-2 by Unknown 0000 - mouth three 06/21/ times a day 2016 as needed Chloraseptic / Hx Lozenges 6-10mg 1 lozenge Unknown 0000 - po q 2 hrs 06/21/ prn 2016 Duoneb 00/ Hx Solution 0.5-2.5(3) 1 unit nebl Unknown 0000 - mg/3ML every 2 06/21/ hours as 2016 needed Acetaminophen 00/00/ Hx Tablets ER 650mg 1 tab by Unknown ER 0000 - mouth every 06/21/ 4 hours as 2016 needed pain Folic Acid 0000/ Hx Tablets 1mg 1 by mouth Unknown 0000 - every day 2017 Magnesium Oxide /00/ Hx Capsules 400mg 1 by mouth Unknown -MG Supplement 0000 - every day 2017 Prednisone /00/ Hx TBPK 10mg (48) 4 tabs a Unknown - day x 4 2018 Immunizations CPT Code Status Date Vaccine Lot # [id number] Given 03/06/2018 Tdap - Tetanus/Diptheria/Acellular Pertussis [id number] Given 03/06/2018 Pneumococcal Conjugate Vaccine 13 Valent For [id number] Intramuscular Use [id number] Given 05/01/2016 Pneumonia Vaccine [id number] Given 05/01/2016 Influenza Virus Vaccine, Quadrivalent, Split, Preservative Free Vital Signs Date Vital Result Comment 05/08/2018 Height 72 inches 6'0" Weight 184.12 lb Heart Rate 88 /min BP Systolic Sitting 140 mmHg BP Diastolic Sitting 88 mmHg Respiratory Rate 14 /min Body Temperature 97.8 F BMI (Body Mass Index) 25.0 kg/m2 04/11/2018 Height 72 inches 6'0" Weight 184.00 lb Heart Rate 97 /min BP Systolic Sitting 150 mmHg BP Diastolic Sitting 94 mmHg Body Temperature 97.5 F O2 % BldC Oximetry 98 % BMI (Body Mass Index) 25.0 kg/m2 03/22/2018 Height 72 inches 6'0" Weight 178.00 lb Heart Rate 102 /min BP Systolic Sitting 136 mmHg BP Diastolic Sitting 80 mmHg Body Temperature 98.3 F O2 % BldC Oximetry 96 % BMI (Body Mass Index) 24.1 kg/m2 03/14/2018 Height 72 inches 6'0" Weight 177.00 lb Heart Rate 72 /min BP Systolic Sitting 126 mmHg BP Diastolic Sitting 76 mmHg Respiratory Rate 14 /min Body Temperature 97.9 F BMI (Body Mass Index) 24.0 kg/m2 03/06/2018 Height 72 inches 6'0" Weight 173.00 lb Heart Rate 95 /min BP Systolic Sitting 148 mmHg BP Diastolic Sitting 90 mmHg Body Temperature 97.7 F O2 % BldC Oximetry 96 % BMI (Body Mass Index) 23.5 kg/m2 02/21/2018 Height 72 inches 6'0" Weight 168.00 lb Heart Rate 78 /min BP Systolic 159 mmHg adult cuff left arm BP Diastolic 98 mmHg adult cuff left arm BP Systolic Sitting 144 mmHg adult cuff right arm BP Diastolic Sitting 108 mmHg adult cuff right arm Body Temperature 97.4 F Pain Level 0 O2 % BldC Oximetry 100 % BMI (Body Mass Index) 22.8 kg/m2 06/22/2016 Height 72 inches 6'0" Weight 172.00 lb Heart Rate 100 /min BP Systolic Sitting 118 mmHg BP Diastolic Sitting 88 mmHg Respiratory Rate 14 /min Body Temperature 98.2 F O2 % BldC Oximetry 98 % BMI (Body Mass Index) 23.3 kg/m2 06/13/2016 Height 72 inches 6'0" Weight 178.00 lb Heart Rate 63 /min BP Systolic 120 mmHg BP Diastolic 74 mmHg Body Temperature 98.5 F O2 % BldC Oximetry 98 % BMI (Body Mass Index) 24.1 kg/m2 Results Test Date Test Result H/L Range Note Laboratory test 06/18/2018 Rapid Influenza A B SEE RESULT BELOW 1 finding Antigen Sputum Culture & 06/18/2018 Sputum Culture SEE RESULT BELOW 2 Sensitiv Gram Stain CBC Auto Diff 06/18/2018 White Blood Count 14.4 10^3/uL High 3.5-10.8 Red Blood Count 5.63 10^6/uL High 4.00-5.40 Hemoglobin 17.5 g/dL 14.0-18.0 Hematocrit 52 % 42-52 Mean Corpuscular Volume 92 fL 80-94 Mean Corpuscular Hemoglobin 31 pg 27-31 Mean Corpuscular HGB Conc 34 g/dL 31-36 Red Cell Distribution Width 14 % 10.5-15 Platelet Count 214 10^3/uL 150-450 Mean Platelet Volume 8.0 fL 7.4-10.4 Abs Neutrophils 11.1 10^3/uL High 1.5-7.7 Abs Lymphocytes 2.3 10^3/uL 1.0-4.8 Abs Monocytes 0.9 10^3/uL High 0-0.8 Abs Eosinophils 0.1 10^3/uL 0-0.6 Abs Basophils 0 10^3/uL 0-0.2 Abs Nucleated RBC 0 10^3/uL Granulocyte % 77.1 % 38-83 Lymphocyte % 15.7 % Low 25-47 Monocyte % 6.2 % 0-7 Eosinophil % 0.7 % 0-6 Basophil % 0.3 % 0-2 Nucleated Red Blood Cells % 0.2 Inr/Protime 06/18/2018 Inr 0.86 0.77-1.02 Laboratory test finding 06/18/2018 Partial Thrombo Time 32.6 seconds 26.0 -36.3 PTT Comp Metabolic Panel 06/18/2018 Sodium 136 mmol/L 135-145 Potassium 3.5 mmol/L 3.5-5.0 Chloride 98 mmol/L Low 101-111 Co2 Carbon Dioxide 22 mmol/L 22-32 Anion Gap 16 mmol/L High 2-11 Glucose 180 mg/dL High 70-100 Blood Urea Nitrogen 13 mg/dL 6-24 Creatinine 1.15 mg/dL 0.67-1.17 BUN/Creatinine Ratio 11.3 8-20 Calcium 9.7 mg/dL 8.6-10.3 Total Protein 7.5 g/dL 6.4-8.9 Albumin 4.4 g/dL 3.2-5.2 Globulin 3.1 g/dL 2-4 Albumin/Globulin Ratio 1.4 1-3 Total Bilirubin 1.00 mg/dL 0.2-1.0 Alkaline Phosphatase 101 U/L 34-104 Alt 18 U/L 7-52 Ast 34 U/L 13-39 Egfr Non- 68.2 >60 Egfr 82.5 >60 3 Laboratory test finding 06/18/2018 Troponin-I (TnI) 0.00 ng/mL <0.04 Lactic Acid 3.8 mmol/L High 0.5-2.0 4 Alcohol < 10 mg/dL <10 Urinalysis Profile 06/18/2018 Urine Color Yellow Urine Appearance Cloudy Urine Specific Moira 1.018 1.010-1.030 Urine pH 6.0 5-9 Urine Urobilinogen Negative Negative Urine Ketones Trace Negative Urine Protein 2+(100 mg/dL) Negative Urine Leukocytes Negative Negative Urine Blood 2+ Negative Urine Nitrite Negative Negative Urine Bilirubin Negative Negative Urine Glucose Negative Negative Urine White Blood Cell Trace(0-5/hpf) Absent Urine Red Blood Cell 3+(>10/hpf) Absent Urine Bacteria Absent Absent Urine Squamous Epithelial Cell Present Absent Urine Hyaline Casts Present Absent Laboratory test finding 06/18/2018 C Reactive Protein 5.71 mg/L <8.01 Blood Culture SEE RESULT BELOW 5 Urine Culture And 06/18/2018 Urine Culture SEE RESULT BELOW 6 Sensitivities Laboratory test finding 06/08/2018 Hepatitis C Rna Undetected IU/mL Undetected 7 Quant Laboratory test finding 03/18/2018 Hepatitis C 1a Undetected 8 Genotype Hepatitis B Surface Ag Nonreactive Nonreactive Fibro Test-Actitest, Serum 03/18/2018 FibroTest Score 0.55 FibroTest Stage F2 FibroTest Interpretation moderate fibrosi <SEE NOTE> 9 ActiTest Score 0.95 ActiTest Grade A3 ActiTest Interpretation severe activity 10 FibroTest-ActiTest Comment See Comment 11 [employer] Serial Number [id number] Apolipoprotein A1, S 104 mg/dL >=120 Zlndh-8-Snttzpkxjwbov, S 367 mg/dL 100 - 280 Haptoglobin, S 91 mg/dL 30 - 200 Alanine Aminotransferase (Alt) 366 U/L 7-55 Gamma Glutamyltransferase GGT 65 U/L 8 - 61 Bilirubin, Total, S 0.2 mg/dL <=1.2 12 CBC Auto Diff 03/09/2018 White Blood Count 6.0 10^3/uL 3.5-10.8 Red Blood Count 4.51 10^6/uL 4.00-5.40 Hemoglobin 14.6 g/dL 14.0-18.0 Hematocrit 43 % 42-52 Mean Corpuscular Volume 96 fL High 80-94 Mean Corpuscular Hemoglobin 32 pg High 27-31 Mean Corpuscular HGB Conc 34 g/dL 31-36 Red Cell Distribution Width 14 % 10.5-15 Platelet Count 176 10^3/uL 150-450 Mean Platelet Volume 8.3 um3 7.4-10.4 Abs Neutrophils 3.3 10^3/uL 1.5-7.7 Abs Lymphocytes 1.7 10^3/uL 1.0-4.8 Abs Monocytes 0.6 10^3/uL 0-0.8 Abs Eosinophils 0.2 10^3/uL 0-0.6 Abs Basophils 0.2 10^3/uL 0-0.2 Abs Nucleated RBC 0 10^3/uL Granulocyte % 55.1 % 38-83 Lymphocyte % 27.8 % 25-47 Monocyte % 10.0 % High 0-7 Eosinophil % 3.5 % 0-6 Basophil % 3.6 % High 0-2 Nucleated Red Blood Cells % 0.1 Comp Metabolic Panel 03/09/2018 Sodium 138 mmol/L 135-145 Potassium 3.9 mmol/L 3.5-5.0 Chloride 102 mmol/L 101-111 Co2 Carbon Dioxide 29 mmol/L 22-32 Anion Gap 7 mmol/L 2-11 Glucose 87 mg/dL 70-100 Blood Urea Nitrogen 7 mg/dL 6-24 Creatinine 0.68 mg/dL 0.67-1.17 BUN/Creatinine Ratio 10.3 8-20 Calcium 9.4 mg/dL 8.6-10.3 Total Protein 6.7 g/dL 6.4-8.9 Albumin 4.0 g/dL 3.2-5.2 Globulin 2.7 g/dL 2-4 Albumin/Globulin Ratio 1.5 1-3 Total Bilirubin 0.60 mg/dL 0.2-1.0 Alkaline Phosphatase 68 U/L 34-104 Alt 106 U/L High 7-52 Ast 77 U/L High 13-39 Egfr Non- 125.0 >60 Egfr 151.2 >60 13 Lipid Profile (Trig/Chol/HDL) 03/09/2018 Triglycerides 100 mg/dL 14 Cholesterol 134 mg/dL 15 HDL Cholesterol 35.7 mg/dL 16 LDL Cholesterol 78 mg/dL 17 Laboratory test finding 03/09/2018 Hepatitis C Rna Quant [id number] IU/mL Undetected 18 1 SEE RESULT BELOW Name: TIA STROUD : [address]: David Lao MD Acct: [id number] Unit: [id number] AGE: 47 Location: ED Re06/18/18 SEX: M Status: REG ER SPEC: [id number] ELMA: 06/18/[address]: Bigg Jurado NP REQ: [id number] RECD: 06/18/18 STATUS: NAMITA URENA DR: Williams Lao MD _ SOURCE: NASAL SPDESC: ORDERED: Flu A B Request Procedure Result Reported Site Rapid Influenza A B Request Final 06/18/18- 1520 ML Specimen received for Influenza A/B Molecular testing * ML - Main Lab . END OF REPORT DEPARTMENT OF PATHOLOGY, [address] [place] [address] Martín Chew M.D. Director [facility] # [id number] 2 SEE RESULT BELOW Name: TIA STROUD : [address]: Talha Raya MD Acct: [id number] Unit: [id number] AGE: 47 Location: [place] [address]- Re06/18/18 SEX: M Status: ADM Jamir SPEC: [id number] ELMA: 06/19/18-[address]: Bigg Jurado NP REQ: [id number] RECD: 06/19/18 STATUS: RES OT DR: Williams Lao MD _ SOURCE: SPUTUM SPDESC: ORDERED: Sputum Cult/GS Procedure Result Reported Site Sputum Smear Final 06/19/18- 1138 ML 3+ Epithelial Cells 1+ Neutrophils 2+ Nucleated Cells 4+ Gram Positive Cocci 3+ Gram Positive Coccobacilli 2+ Gram Negative Bacilli 2+ Gram Positive Bacilli 1+ Yeast Sputum Culture PENDING * ML - Main Lab . END OF REPORT DEPARTMENT OF PATHOLOGY, [address] [place] [address] Martín Chew M.D. Director [facility] # [id number] 3 Because ethnic data is not always readily available, this report includes an eGFR for both -Americans and non- Americans. The National Kidney Disease Education Program (NKDEP) does not endorse the use of the MDRD equation for patients that are not between the ages of 18 and 70, are , have extremes of body size, muscle mass, or nutritional status, or are non- or non-. According to the National Kidney Foundation, irrespective of diagnosis, the stage of the disease is based on the level of kidney function: Stage Description GFR(mL/min/1.73 m(2)) 1 Kidney damage with normal or decreased GFR 90 2 Kidney damage with mild decrease in GFR 60-89 3 Moderate decrease in GFR 30-59 4 Severe decrease in GFR 15-29 5 Kidney failure <15 (or dialysis) 4 Critical Result LACT:3.8 Called to [id number] at: 12:07 by:[email or web address] Read back by:[email or web address] [facility] Severe Sepsis and Septic Shock Management Bundle Measure requires all lactic acids initially measuring >2.0 mmol/L be repeated. 5 SEE RESULT BELOW Name: TIA STROUD : [address]: Talha Raya MD Acct: [id number] Unit: [id number] AGE: 47 Location: [place] [address] Re06/18/18 SEX: M Status: ADM Jamir SPEC: [id number] ELMA: 06/18/18-[address] [facility] DR: David Lao MD REQ: [id number] RECD: 06/18/18-115 STATUS: RES ROMEL DR: Williams Heaton MD _ SOURCE: BLOOD,VENO SPDESC: ORDERED: Blood Cult Procedure Result Reported Site Aerobic Culture Bottle Preliminary 06/19/18- 1153 ML No Growth Day 1 Anaerobic Culture Bottle Preliminary 06/19/18- 1151 ML No Growth Day 1 * ML - Main Lab . END OF REPORT DEPARTMENT OF PATHOLOGY, [address] [place] [address] Martín Chew M.D. Director [facility] # [id number] 6 SEE RESULT BELOW Name: TIA STROUD : [address]: Talha Raya MD Acct: [id number] Unit: [id number] AGE: 47 Location: [facility] Re/06/18 SEX: M Status: ADM Jamir SPEC: [id number] ELMA: 06/18/[address] [facility] DR: David Lao MD REQ: [id number] RECD: 06/18/18 STATUS: NAMITA URENA DR: Williams Heaton MD _ SOURCE: URINE SPDESC: ORDERED: Urine Culture Procedure Result Reported Site Urine Culture Final 06/19/18- 1209 ML No Growth (<1,000 CFU/mL) * ML - Main Lab . END OF REPORT DEPARTMENT OF PATHOLOGY, [address] [place] [id number] Martín Chew M.D. Director [facility] # [id number] 7 Result in log IU/mL is Undetected. ADDITIONAL INFORMATION The quantification range of this assay is 15 to 100,000,000 IU/mL (1.18 log to 8.00 log IU/mL). Testing was performed using the porfirio HCV test ([employer] with the porfirio AsicAhead0 System. Test Performed by: [facility] [place] [place] [address] 8 ADDITIONAL INFORMATION This test was performed using the Mendoza RealTime HCV Genotype II assay ([employer] [place], [place]). Test Performed by: [place] [address] 9 moderate fibrosis FibroTest estimates liver fibrosis FibroTest Score Stage Interpretation 0.00-0.21 F0 no fibrosis 0.21-0.27 F0-F1 no fibrosis 0.27-0.31 F1 minimal fibrosis 0.31-0.48 F1-F2 minimal fibrosis 0.48-0.58 F2 moderate fibrosis 0.58-0.72 F3 advanced fibrosis 0.72-0.74 F3-F4 advanced fibrosis 0.74-1.00 F4 severe fibrosis (Cirrhosis) 10 ActiTest estimates necroinflammatory activity ActiTest Score Grade Interpretation 0.00-0.17 A0 no activity 0.17-0.29 A0-A1 no activity 0.29-0.36 A1 minimal activity 0.36-0.52 A1-A2 minimal activity 0.52-0.60 A2 significant activity 0.60-0.62 A2-A3 significant activity 0.62-1.00 A3 severe activity 11 The reliability of results is dependent on compliance with the preanalytical and analytical conditions recommended by [employer]. The tests have to be deferred for: acute hemolysis, acute hepatitis, acute inflammation, extra hepatic cholestasis. The advice of a specialist should be sought for interpretation in chronic hemolysis and Gilbert's syndrome. The test interpretation is not validated in liver transplant patients. Isolated extreme values of one of the components should lead to caution in interpreting the results. In case of discordance between a biopsy result and a test, it is recommended to seek advice of a specialist. The causes of these discordances could be due to a flaw of the test or to a flaw in the biopsy: i.e. a liver biopsy has a 33% variability rate for one fibrosis stage. FibroTest is interpretable for chronic hepatitis B and C, alcoholic and non alcoholic steatosis. ActiTest is interpretable for chronic hepatitis B and C. ADDITIONAL INFORMATION This test was developed and its performance characteristics determined by [facility] in a manner consistent with CLIA requirements. This test has not been cleared or approved by the U.S. Food and Drug Administration. 12 Test Performed by: [address] [address] 13 Because ethnic data is not always readily available, this report includes an eGFR for both -Americans and non- Americans. The National Kidney Disease Education Program (NKDEP) does not endorse the use of the MDRD equation for patients that are not between the ages of 18 and 70, are , have extremes of body size, muscle mass, or nutritional status, or are non- or non-. According to the National Kidney Foundation, irrespective of diagnosis, the stage of the disease is based on the level of kidney function: Stage Description GFR(mL/min/1.73 m(2)) 1 Kidney damage with normal or decreased GFR 90 2 Kidney damage with mild decrease in GFR 60-89 3 Moderate decrease in GFR 30-59 4 Severe decrease in GFR 15-29 5 Kidney failure <15 (or dialysis) 14 Desirable: <150 Borderline High: 150-199 High: 200-499 Very High: >500 15 Desirable: <200 Borderline High: 200-239 High: >239 16 Low: <40 Desirable: 40-60 High: >60 17 Desirable: <100 Near Optimal: 100-129 Borderline High: 130-159 High: 160-189 Very High: >189 18 Result in log IU/mL is 6.02. ADDITIONAL INFORMATION The quantification range of this assay is 15 to 100,000,000 IU/mL (1.18 log to 8.00 log IU/mL). Testing was performed using the porfirio HCV test ([employer] with the porfirio AsicAhead0 System. Test Performed by: [facility] [address] [place] [address] Procedures Date CPT Code Description Status 02/09/2018 40949 EKG, Interpretation Only Completed 05/03/2016 60985 bronchoscopy w/bx(s) (hosp) Completed 05/03/2016 67082 Bronchoscopy With Bronchial Alveolar Lavage Completed Encounters Type Date Location Provider [facility] E/M Dx Office Visit 05/08/2018 [facility] Zay Vincent, 27089 B18.2 10:50a Infectious Diseases M.DBucky K74.0 Office Visit 04/11/2018 9:40a [facility] Internal Medicine Williams Heaton, [address] J44[address] M.Junior,[facility] F17.200 F10.11 Office Visit 03/14/2018 2:40p [facility] Zay Vincent, 03098 B18.2 Infectious Diseases M.D. Office Visit 03/06/2018 1:00p [facility] Internal Medicine Angelina Chun, LOG DRIVER [address] J44[address] R03.0 F17.210 F10.20 D69.6 B18.2 K76.0 Z13.220 Z23 Office Visit 02/21/2018 10:30a [facility] [address] J44.9 Of [facility] F17.210 F10.20 B18.2 D69.6 K76.0 Office Visit 02/10/2018 10:24a [facility] Irene Chang, 29432 F17.210 Assoc, Hospitalists Arleth J44.1 F10.239 D69.6 Office Visit 02/09/2018 10:24a [facility] Janet Phillipsch, 39850 F10.239 Assoc, Hospitalists RESIDENT ASSISTANT CNA J44.1 R74.0 Office Visit 02/08/2018 10:23a [facility], Agapito Dilma, [address]152 F17.210 Hospitalists [place] J44.1 D69.6 F10.20 Office Visit 06/22/2016 3:00p [facility] Zay Vincent, 62816 J85.1 Infectious Diseases Arleth R04.2 Office Visit 06/13/2016 11:20a [facility] Internal [facility] Juarez Dyson M.D. 52256 J85.1 - [facility] J44.9 F17.210 Office Visit 05/11/2016 12:59p [facility], [place] [address] J18.9 Hospitalists J44.9 F10.20 Z72.0 Office Visit 05/11/2016 11:06a [facility] Zay Vincent, 99872 J85.1 Infectious Diseases Arleth J44.9 Z79.2 Office Visit 05/10/2016 10:59a [facility] Zay Vincent, 75918 J85.1 Infectious Diseases MBilly J44.9 Office Visit 05/10/2016 12:58p [facility], [place] [address] J18.9 Hospitalists J44.9 F10.20 Z72.0 Office Visit 05/09/2016 12:57p [facility], [place] [address] J18.9 Hospitalists J44.9 F10.20 Z72.0 Office Visit 05/08/2016 10:30a [facility] Zay Vincent, [address]1445 J85.1 Infectious Diseases MBilly J44.9 Office Visit 05/08/2016 9:32a [facility] [address] D72.829 Services Of [facility] R06.02 Office Visit 05/08/2016 3:19p [facility] Janet Phillipsch, RESIDENT ASSISTANT CNA [address]93[address] J18.9 Hospitalists J44.9 F10.20 Z72.0 Office Visit 05/07/2016 3:18p [facility] Janet Alvarado, RESIDENT ASSISTANT CNA 45285 J18.9 Hospitalists J44.9 F10.20 Z72.0 Office Visit 05/06/2016 3:17p [facility] Janet Phillipsch, RESIDENT ASSISTANT CNA 58278 J18.9 Hospitalists J44.9 F10.20 Z72.0 Office Visit 05/05/2016 3:16p [facility], [address] J18.9 Assoc,pc [place] Hospitalists J44.9 Z72.0 F10.20 Office Visit 05/05/2016 9:26a [facility] [address] D72.829 Services [facility] R06.02 Office Visit 05/04/2016 3:01p [facility] Sergo Maynewlla-Dulfer, 82483 J18.9 Assoc,pc [place] Hospitalists J44.9 F10.20 Office Visit 05/03/2016 3:00p [facility] Sergo Mayzulla-Dulfer, 59956 J18.9 Assoc,pc [place] Hospitalists J44.9 Office Visit 05/03/2016 9:07a [facility] [address] J69.8 Services [facility] D72.829 R91.8 Office Visit 05/02/2016 8:21a [facility] Zay Vincent, 89074 J18.9 Infectious Diseases MBilly K52.1 R50.9 D72.829 Office Visit 05/02/2016 2:59p [facility] Sergo Maynewlla-Dulfer, 17427 J18.9 Assoc,pc [place] Hospitalists J44.9 F10.20 Office Visit 05/02/2016 9:06a [facility] [address] D72.829 Services Of Fertilizer Loader J18.9 R91.8 Office Visit 05/01/2016 2:59p [facility] [address] J18.9 Assoc, [place] Hospitalists J44.9 F10.20 Office Visit 05/01/2016 9:04a [facility] [place] [address] J18.9 Services Of Fertilizer Loader R91.8 D72.829 Office Visit 04/30/2016 2:58p [facility], Lisbet Cosby, RESIDENT ASSISTANT CNA 80871 J18.9 Hospitalists J44.9 Office Visit 04/29/2016 2:58p [facility], [facility] RESIDENT ASSISTANT CNA 38881 J18.9 Hospitalists J44.9 Office Visit 04/28/2016 2:57p [facility], Lisbet Cosby, RESIDENT ASSISTANT CNA 25711 J18.9 Hospitalists J44.9 Office Visit 04/28/2016 9:04a [facility] [place] [address] J18.9 Services Of Fertilizer Loader R91.8 Office Visit 04/27/2016 9:03a Pul[facility] [address] J18.9 Services Of Fertilizer Loader R91.8 Office Visit 04/27/2016 2:56p [facility], Lisbet Cosby, RESIDENT ASSISTANT CNA 77690 J18.9 Hospitalists J44.9 Office Visit 04/26/2016 2:55p [facility] Liana Gamboa N.P. [address] J18.9 Hospitalists J44.9 Office Visit 04/26/2016 8:59a [facility] [address] J18.9 Services Of F[employer]il[employer]er R91.8 Office Visit 04/25/2016 12:12p [facility] [address] R06.02 Services Of [employer] R91.8 F17.210 F10.10 Office Visit 04/25/2016 10:22a [facility], [address] J43.9 Infectious Diseases M.Junior J85.2 F10.10 Z87.891 Office Visit 04/25/2016 2:55p [facility], Talon Jade M.D. 73766 J18.9 Hospitalists J44.9 Z72.0 Office Visit 04/05/2016 7:59a [facility] [place] [address] R06.02 Hospitalists F10.230 Office Visit 04/04/2016 7:59a [facility], Talon Jade M.D. 98096 R06.02 Hospitalists F10.230 Plan of Care 05/08/2018 - Zay Vincent M.D.B18.2 Chronic viral hepatitis CComments: VL now and 3 months after finishing treatment as test of cureK74.0 Hepatic fibrosisComments:continue to abstain from alcohol
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
[2018-06-20 16:27] LABS: ABS Basophils 0 10^3/ul (0-0.2); ABS Eosinophils 0 10^3/ul (0-0.6); ABS Lymphocytes 0.8 10^3/ul (1.0-4.8); ABS Monocytes 0.2 10^3/ul (0-0.8); ABS Neutrophils 8.2 10^3/ul (1.5-7.7); ABS Nucleated RBC 0 10^3/ul; Eosinophil % 0 % (0-6); Hematocrit 41 % (42-52); Lymphocyte % 8.6 % (25-47); Mean Corpuscular HGB Conc 34 g/dl (31-36); Mean Corpuscular Hemoglobin 31 pg (27-31); Mean Corpuscular Volume 92 fL (80-94); Mean Platelet Volume 8.3 fL (7.4-10.4); Nucleated Red Blood Cells % 0; Platelet Count 148 10^3/ul (150-450); Red Cell Distribution Width 14 % (10.5-15); White Blood Count 9.3 10^3/ul (3.5-10.8)
[2018-06-20 16:43] LABS: EGFR Non-African American 127.1 (>60)
[2018-06-20 16:44] VITALS: BP 160/106
== END 2018-06-20 17:12 | disposition left against medical advice (07) ==
LOC: ED 13:15
DX: J18.9 Pneumonia, unspecified organism (principal); K21.9 Gastro-esophageal reflux disease without esophagitis; F17.210 Nicotine dependence, cigarettes, uncomplicated
CPT/HCPCS: 36415; 80053; 80320; 85025; 99282; G0480

== ENCOUNTER 2019-05-03 13:56 | Emergency (ER) | payer OTHER ==
[2019-05-03] MEDS ORDERED: Ondansetron INJ* 2 MG/ML VIAL IV ONE (14:51)
[2019-05-03] MEDS ORDERED: NS 0.9% 1000 ML** 1,000 ML IV ONE (14:51)
[2019-05-03 15:13] LABS: ABS Lymphocytes 1.6 10^3/ul (1.0-4.8); ABS Monocytes 0.4 10^3/ul (0-0.8); ABS Neutrophils 1.9 10^3/ul (1.5-7.7); Eosinophil % 1.1 %; Hematocrit 41 % (42-52); Lymphocyte % 39.7 %; Mean Corpuscular HGB Conc 34 g/dL (31-36); Mean Corpuscular Hemoglobin 31 pg (27-31); Mean Corpuscular Volume 91 fL (80-94); Mean Platelet Volume 6.6 fL (7.4-10.4); Nucleated Red Blood Cells % 0.1; Platelet Count 132 10^3/uL (150-450); Red Blood Count 4.52 10^6 /uL (4.18-5.48); Red Cell Distribution Width 15 % (10-15)
[2019-05-03 15:30] LABS: Albumin 3.7 g/dL (3.2-5.2); Albumin/Globulin Ratio 1.5 (1-3); BUN/Creatinine Ratio 6.4 (8-20); C Reactive Protein 5.92 mg/L (<8.01); Calcium 8.3 mg/dL (8.6-10.3); EGFR African American 128.5 (>60); EGFR Non-African American 106.2 (>60); Globulin 2.5 g/dL (2-4); Potassium 3.8 mmol/L (3.5-5.0); Total Bilirubin 0.7 mg/dL (0.2-1.0); Total Protein 6.2 g/dL (6.4-8.9)
[2019-05-03 15:56] LABS: Urine Appearance Clear; Urine Bacteria Absent (Absent); Urine Bilirubin Negative (Negative); Urine Blood 1+ (Negative); Urine Color Straw; Urine Glucose Negative (Negative); Urine Ketones Negative (Negative); Urine Nitrite Negative (Negative); Urine Protein Negative (Negative); Urine Red Blood Cell Trace(0-2/hpf) (Absent); Urine Specific Gravity 1.002 (1.010-1.030); Urine Urobilinogen Negative (Negative); Urine White Blood Cell Absent (Absent)
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
[2019-05-03 17:15] VITALS: BP 156/99
== END 2019-05-03 17:12 | disposition home or self-care (01) ==
LOC: ED 13:56
DX: R19.7 Diarrhea, unspecified (principal); D64.9 Anemia, unspecified; J44.9 Chronic obstructive pulmonary disease, unspecified; K21.9 Gastro-esophageal reflux disease without esophagitis; F41.9 Anxiety disorder, unspecified; F32.9 Major depressive disorder, single episode, unspecified; F17.210 Nicotine dependence, cigarettes, uncomplicated
CPT/HCPCS: 36415; 71045; 80053; 81003; 81015; 83605; 84484; 85025; 86140; 87177; 87209; 87328; 87329; 93005; 96361; 96374; 99282

== ENCOUNTER 2019-08-29 17:11 | Inpatient (IN) | payer OTHER ==
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
[2019-08-29] MEDS ORDERED: Albuterol/Ipratropium NEB.SOL* Albuterol 2.5 MG/Ipratropium 0.5 MG 3 ML INH ONE (17:35)
[2019-08-29] MEDS ORDERED: Dexamethasone IV* 4 MG/ML 1 ML (4 MG) IV SLOW PU ONE (17:43)
[2019-08-29 18:20] LABS: BUN/Creatinine Ratio 4.9 (8-20); Calcium 8.4 mg/dL (8.6-10.3); EGFR African American 170.7 (>60); EGFR Non-African American 141.1 (>60)
[2019-08-29 18:25] LABS: Hematocrit 46 % (42-52); Hemoglobin 16.2 g/dL (14.0-18.0); Mean Corpuscular HGB Conc 36 g/dL (31-36); Mean Corpuscular Hemoglobin 34 pg (27-31); Mean Corpuscular Volume 96 fL (80-94); Mean Platelet Volume 6.8 fL (7.4-10.4); Platelet Count 51 10^3/uL (150-450); Red Blood Count 4.78 10^6 /uL (4.18-5.48); Red Cell Distribution Width 14 % (10-15); White Blood Count 10.3 10^3/uL (3.5-10.8)
--- NOTE | 2019-08-29 19:16 | ED ---
Progress - Progress Note Progress Note: Pt signed out from Dr. Story at 1900 shift change pending sobriety and dispo. Course/Dx - Course Course Of Treatment: This patient is a 48 year old male accompanied by his presenting to [facility] with a chief complaint of alcohol withdrawal. CXR is unremarkable. MCV 96 H, MCH 34 H, Plt Count 51 H, MPV 6.8 L, Chloride 98 L, BUN 3L Creatinine 0.61 L, BUN/Creatinine Ratio 4.9 L, Glucose 105 H, Calcium 8.4L, Serum Alcohol 503 H. Patient will be signed out to Dr. Schwarz at shift change 1900 pending sobriety and disposition. Pt was given 8mg IV Decadron. - Diagnoses Provider Diagnoses: Alcohol intoxication, Alcohol dependence Discharge ED - Sign-Out/Discharge Documenting (check all that apply): Patient Departure - admit - Discharge Plan Condition: Stable Disposition: ADMITTED TO [facility] Referrals: Leonardo Mcnamara MD [Primary Care Provider] - - Billing Disposition and Condition Condition: STABLE Disposition: Admitted to [facility] - Attestation Statements Document Initiated by Ana: Yes Documenting Scribe: Claude Romo Provider For Whom Ana is Documenting (Include Credential): Anneliese Schwarz MD Scribe Attestation: Claude Guadarrama scribed for Anneliese Schawrz MD on 08/29/19 at 2137. Scribe Documentation Reviewed: Yes Provider Attestation: The documentation as recorded by the Claude chandra accurately reflects the service I personally performed and the decisions made by me, Anneliese Schwarz MD Status of Scribe Document: Viewed
[2019-08-29] MEDS ORDERED: Thiamine INJ* 100 MG, Folic Acid IV* 1 MG, Multiple Vitamin IV ADULT* 10 ML in NS 0.9% ... IV ONE (21:21)
[2019-08-29] MEDS ORDERED: Albuterol/Ipratropium NEB.SOL* Albuterol 2.5 MG/Ipratropium 0.5 MG 3 ML INH PRN (21:21)
[2019-08-29] MEDS ORDERED: Acetaminophen TAB* 325 MG PO PRN (21:40)
[2019-08-29] MEDS ORDERED: Ondansetron INJ* 2 MG/ML VIAL IV PRN (21:40)
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
[2019-08-29] MEDS ORDERED: LORazepam INJ* 2 MG/ML 1 ML VIAL IV PUSH PRN (23:37)
[2019-08-29] MEDS ORDERED: Lorazepam PYXIS KEY PRN (23:37)
[2019-08-30] MEDS: LORazepam IV 0-3 mg for WAM protocol IV PUSH SCH ×7 (00:23→16:28)
[2019-08-30 06:03] LABS: INR 0.96 (0.82-1.09)
[2019-08-30 06:13] LABS: Albumin 3.6 g/dL (3.2-5.2); Albumin/Globulin Ratio 1.1 (1-3); BUN/Creatinine Ratio 6.6 (8-20); EGFR African American 170.7 (>60); EGFR Non-African American 141.1 (>60); Globulin 3.3 g/dL (2-4); Magnesium 1.5 mg/dL (1.9-2.7); Phosphorus 3.1 mg/dL (2.5-5.0); Potassium 3.8 mmol/L (3.5-5.0); Total Bilirubin 0.7 mg/dL (0.2-1.0); Total Protein 6.9 g/dL (6.4-8.9)
[2019-08-30] MEDS ORDERED: Magnesium Sulfate 2 GM IV* 2 GM/50 ML BAG IVPB ONE (06:57)
--- NOTE | 2019-08-30 07:40 | PN ---
Subjective Date of Service: 08/30/19 Interval History: Mr. Moyer says that he feels about as good to be expected. He notes that he has a tremor. He denies nausea. He denies hallucinations. Objective Active Medications: Acetaminophen (Tylenol Tab*) 650 mg PO Q8H PRN Albuterol/Ipratropium (Duoneb (Albuterol 2.5 Mg/Ipratropium 0.5 Mg)) 1 neb INH Q6H PRN Folic Acid (Folvite Tab*) 1 mg PO DAILY [facility] Magnesium Sulfate (Magnesium Sulfate 2 Gm Iv*) 2 gm in 50 mls @ 50 mls/hr IVPB ONCE ONE Lorazepam (Ativan Inj*) 0 - 3 mg IV PUSH .PER [facility] PROTOCOL [facility]; Protocol Miscellaneous (Ativan Pyxis Grewal) 1 ea N/A .ATIVAN IV GREWAL PRN Mometasone Furoate/Formoterol Fumar (Dulera 200/5 Mdi*) 1 puff INH BID [facility] Nicotine (Nicotine Patch 14 Mg/24 Hr*) 1 patch TRANSDERM DAILY [facility] Ondansetron HCl (Zofran Inj*) 4 mg IV Q6H PRN Pharmacy Profile Note (Nicotine Patch Removal Note*) 1 note FOLLOW UP 2100 [facility] Thiamine HCl (Vitamin B-1 Tab*) 100 mg PO DAILY [facility] Vital Signs: Temp Pulse Resp BP Pulse Ox 97.8 F 109 18 145/94 91 08/30/19 06:05 08/30/19 06:05 08/30/19 06:05 08/30/19 06:05 08/30/19 06:05 Oxygen Devices in Use Now: Nasal Cannula Appearance: Male lying in bed in NAD, tremor noted Eyes: No Scleral Icterus Ears/Nose/Mouth/Throat: Mucous Membranes Moist Neck: Trachea Midline Respiratory: Symmetrical Chest Expansion and Respiratory Effort, Clear to Auscultation Cardiovascular: NL Sounds; No Murmurs; No JVD, No Edema Abdominal: NL Sounds; No Tenderness; No Distention Extremities: No Edema Skin: No Rash or Ulcers Neurological: Alert and Oriented x 3, NL Muscle Strength and Tone Nutrition: Taking PO's Result Diagrams: 08/29/19 17:57 08/30/19 05:23 Assess/Plan/Problems-Billing Assessment: Mr. Moyer is a 48 yo M with a PMH of alcoholism who was admitted on 08/29/19 with alcohol withdrawal. - Patient Problems (1) Alcohol withdrawal Comment: - Withdrawl symptoms noted, continue WAM, started valium taper as well - Continue thiamine, folic acid, electrolyte replacement - Social work consult ordered (2) COPD (chronic obstructive pulmonary disease) Comment: - No evidence of exacerbation - Likely contributing to his need for oxygen (3) Nicotine addiction Comment: - continue nicotine replacement. (4) DVT prophylaxis Comment: - Ambulatory (5) Full code status Comment: Status and Disposition: Inpatient, anticipate discharge to home when medically stable.
[2019-08-30] MEDS: Mometasone/Formoter 200/5 MDI INH SCH ×2 (08:08→20:27)
[2019-08-30] MEDS: Nicotine PATCH 14 MG/24 HR* PATCH TRANSDERM SCH (08:27)
[2019-08-30] MEDS: Thiamine TAB* 100 MG TAB PO SCH (08:28)
[2019-08-30] MEDS: Folic Acid TAB* 1 MG PO SCH (08:28)
[2019-08-30] MEDS ORDERED: Diazepam TAB(*) 5 MG PO SCH ×3 (13:00→16:53)
[2019-08-30] MEDS: Lactated Ringers 1000 ML Bag* 1,000 ML IV SCH ×2 (14:26→21:08)
[2019-08-30] MEDS ORDERED: LORazepam INJ* 2 MG/ML 1 ML VIAL IV PUSH SCH (17:26)
[2019-08-30] MEDS ORDERED: Diazepam TAB(*) 5 MG PO ONE (17:38)
[2019-08-30] MEDS: Oxazepam CAP* 15 MG PO PRN ×3 (20:10→23:58)
[2019-08-30] MEDS ORDERED: Nicotine Patch Removal NOTE FOLLOW UP SCH (21:00)
[2019-08-31] MEDS: Oxazepam CAP* 15 MG PO PRN ×9 (01:55→23:27)
[2019-08-31] MEDS: Diazepam TAB(*) 5 MG PO SCH ×4 (01:55→19:26)
[2019-08-31] MEDS: Nicotine Lozenge* mini 2 MG LOZNG.MINI MT PRN ×7 (04:27→23:27)
[2019-08-31] MEDS: Nicotine PATCH 14 MG/24 HR* PATCH TRANSDERM SCH ×2 (05:21→10:04)
[2019-08-31] MEDS ORDERED: Nicotine* 4MG (FRUIT FLAVOR) GUM PO ONE (05:39)
[2019-08-31] MEDS ORDERED: Oxazepam CAP* 10 MG ONE (06:16)
[2019-08-31] MEDS ORDERED: Oxazepam CAP* 10 MG PO PRN (07:00)
[2019-08-31] MEDS ORDERED: Diazepam TAB(*) 10 MG PO ONE ×2 (07:31→17:21)
[2019-08-31] MEDS: Thiamine TAB* 100 MG TAB PO SCH (07:43)
[2019-08-31] MEDS: Folic Acid TAB* 1 MG PO SCH (07:43)
[2019-08-31] MEDS: Mometasone/Formoter 200/5 MDI INH SCH ×2 (07:48→19:57)
--- NOTE | 2019-08-31 09:59 | PN ---
Subjective Date of Service: 08/31/19 Interval History: Mr. Moyer was reported to be tremulous and disoriented early this AM. He has been given additional valium and serax and is feeling better, sitting on edge of bed and eating breakfast. He denies any complaint. Objective Active Medications: Acetaminophen (Tylenol Tab*) 650 mg PO Q8H PRN Albuterol/Ipratropium (Duoneb (Albuterol 2.5 Mg/Ipratropium 0.5 Mg)) 1 neb INH Q6H PRN Diazepam (Valium Tab(*)) 10 mg PO Q8H [facility] Folic Acid (Folvite Tab*) 1 mg PO DAILY [facility] Lactated Ringer's (Lactated Ringers 1000 Ml Bag*) 1,000 mls @ 150 mls/hr IV PER RATE [facility] Mometasone Furoate/Formoterol Fumar (Dulera 200/5 Mdi*) 1 puff INH BID [facility] Nicotine (Nicotine Patch 21 Mg/24 Hr*) 1 patch TRANSDERM DAILY@0800 [facility] Nicotine Polacrilex (Nicotine Lozenge Mini) 2 mg MT Q2H PRN Ondansetron HCl (Zofran Inj*) 4 mg IV Q6H PRN Oxazepam (Serax Cap*) 30 mg PO Q2H PRN Pharmacy Profile Note (Nicotine Patch Removal Note*) 1 note FOLLOW UP 2099 [facility] Pharmacy Profile Note (Nicotine Patch Removal Note*) 1 note PATCH OFF 2099 [facility] Propranolol HCl (Inderal 10 Mg Tab) 10 mg PO TID [facility] Thiamine HCl (Vitamin B-1 Tab*) 100 mg PO DAILY [facility] Vital Signs: Temp Pulse Resp BP Pulse Ox 98.8 F 94 30 116/86 95 08/31/19 09:34 08/31/19 09:34 08/31/19 09:47 08/31/19 09:34 08/31/19 09:34 Oxygen Devices in Use Now: Nasal Cannula Appearance: Male sitting on edge of bed in NAD, tremor noted Eyes: No Scleral Icterus Ears/Nose/Mouth/Throat: Mucous Membranes Moist Neck: Trachea Midline Respiratory: Symmetrical Chest Expansion and Respiratory Effort, Clear to Auscultation Cardiovascular: NL Sounds; No Murmurs; No JVD, No Edema Abdominal: NL Sounds; No Tenderness; No Distention Extremities: No Edema Skin: No Rash or Ulcers Neurological: NL Muscle Strength and Tone, - - Alert oriented to self, some confusion noted Result Diagrams: 08/29/19 17:57 08/30/19 05:23 Assess/Plan/Problems-Billing Assessment: Mr. Moyer is a 48 yo M with a PMH of alcoholism who was admitted on 08/29/19 with alcohol withdrawal. - Patient Problems (1) Alcohol withdrawal Comment: - Withdrawl symptoms persisted, continue increased valium and continue serax ( in lieu of ativan) based on [facility] protocol - Continue thiamine, folic acid, electrolyte replacement - Social work consult ordered (2) COPD (chronic obstructive pulmonary disease) Comment: - No evidence of exacerbation - Likely contributing to his need for oxygen (3) Nicotine addiction Comment: - continue nicotine replacement. (4) DVT prophylaxis Comment: - Ambulatory (5) Full code status Comment: Status and Disposition: Inpatient, anticipate discharge to home when medically stable.
[2019-08-31] MEDS: Nicotine PATCH 21 MG/24 HR* PATCH TRANSDERM SCH (10:03)
[2019-08-31] MEDS: Lactated Ringers 1000 ML Bag* 1,000 ML IV SCH (12:05)
[2019-08-31] MEDS: Loperamide CAP* 2 MG PO PRN ×2 (17:17→19:26)
[2019-09-01] MEDS: Nicotine Lozenge* mini 2 MG LOZNG.MINI MT PRN ×4 (01:47→19:29)
[2019-09-01] MEDS: Diazepam TAB(*) 5 MG PO SCH ×3 (01:47→13:01)
[2019-09-01] MEDS: Oxazepam CAP* 15 MG PO PRN ×3 (01:48→14:20)
[2019-09-01] MEDS ORDERED: Lorazepam PYXIS KEY PRN ×2 (04:10→14:31)
[2019-09-01] MEDS ORDERED: LORazepam INJ* 2 MG/ML 1 ML VIAL IV PUSH ONE ×2 (04:10→14:31)
[2019-09-01] MEDS ORDERED: Lorazepam PYXIS KEY ONE (04:13)
[2019-09-01] MEDS ORDERED: LORazepam INJ* 2 MG/ML 1 ML VIAL ONE ×2 (04:14→19:27)
[2019-09-01 06:48] LABS: BUN/Creatinine Ratio 11.1 (8-20); Calcium 8.9 mg/dL (8.6-10.3); EGFR Non-African American 116.5 (>60); Magnesium 1.5 mg/dL (1.9-2.7)
[2019-09-01] MEDS: Nicotine PATCH 21 MG/24 HR* PATCH TRANSDERM SCH (07:08)
[2019-09-01] MEDS: Folic Acid TAB* 1 MG PO SCH (07:09)
[2019-09-01] MEDS: Thiamine TAB* 100 MG TAB PO SCH ×2 (07:09→17:03)
[2019-09-01] MEDS: Mometasone/Formoter 200/5 MDI INH SCH ×2 (08:13→20:01)
[2019-09-01] MEDS: Lactated Ringers 1000 ML Bag* 1,000 ML IV SCH (12:31)
--- NOTE | 2019-09-01 16:53 | PN ---
Subjective Date of Service: 09/01/19 Interval History: Actively withdrawing. seeing bugs crawling.unable to stand. Family History: Unchanged from Admission Past Medical History: Unchanged from Admission Objective Active Medications: Acetaminophen (Tylenol Tab*) 650 mg PO Q8H PRN PRN Reason: MILD PAIN or TEMP > 100.4 Albuterol/Ipratropium (Duoneb (Albuterol 2.5 Mg/Ipratropium 0.5 Mg)) 1 neb INH Q6H PRN PRN Reason: SOB/WHEEZING Folic Acid (Folvite Tab*) 1 mg PO DAILY [facility] Last Admin: 09/01/19 07:09 Dose: 1 mg Loperamide HCl (Imodium Cap*) 2 mg PO .SEE DIRECTIONS PRN PRN Reason: DIARRHEA Last Admin: 08/31/19 19:26 Dose: 2 mg Lorazepam (Ativan Inj*) 0 - 3 mg IV PUSH .PER [facility] PROTOCOL [facility]; Protocol Miscellaneous (Ativan Pyxis Grewal) 1 ea N/A .ATIVAN IV GREWAL PRN PRN Reason: PYXIS GREWAL Mometasone Furoate/Formoterol Fumar (Dulera 200/5 Mdi*) 1 puff INH BID [facility] Last Admin: 09/01/19 08:13 Dose: 1 puff Nicotine (Nicotine Patch 21 Mg/24 Hr*) 1 patch TRANSDERM DAILY@0800 [facility] Last Admin: 09/01/19 07:08 Dose: 1 patch Nicotine Polacrilex (Nicotine Lozenge Mini) 2 mg MT Q2H PRN PRN Reason: CRAVING Last Admin: 09/01/19 12:07 Dose: 2 mg Ondansetron HCl (Zofran Inj*) 4 mg IV Q6H PRN PRN Reason: NAUSEA Pharmacy Profile Note (Nicotine Patch Removal Note*) 1 note PATCH OFF 2100 [facility] Propranolol HCl (Inderal 10 Mg Tab) 10 mg PO TID [facility] Last Admin: 09/01/19 13:01 Dose: 10 mg Thiamine HCl (Vitamin B-1 Tab*) 100 mg PO DAILY [facility] Last Admin: 09/01/19 07:09 Dose: 100 mg Thiamine HCl (Vitamin B-1 Tab*) 100 mg PO DAILY [facility] Vital Signs - 8 hr 09/01/19 09/01/19 09/01/19 09:38 10:00 12:00 Temperature 98.0 F 98.1 F Pulse Rate 73 78 Respiratory 18 18 18 Rate Blood Pressure 141/70 162/75 (mmHg) O2 Sat by Pulse 99 99 Oximetry 09/01/19 09/01/19 09/01/19 13:01 13:33 14:00 Temperature 98.7 F Pulse Rate 110 Respiratory 16 16 18 Rate Blood Pressure 156/71 (mmHg) O2 Sat by Pulse 99 Oximetry 09/01/19 09/01/19 09/01/19 14:20 14:38 15:35 Temperature Pulse Rate Respiratory 18 20 16 Rate Blood Pressure (mmHg) O2 Sat by Pulse Oximetry 09/01/19 09/01/19 15:36 16:00 Temperature 97.9 F Pulse Rate 92 Respiratory 16 16 Rate Blood Pressure 141/69 (mmHg) O2 Sat by Pulse 98 Oximetry Oxygen Devices in Use Now: None Eyes: No Scleral Icterus Ears/Nose/Mouth/Throat: - Neck: NL Appearance and Movements; NL JVP Respiratory: Symmetrical Chest Expansion and Respiratory Effort Cardiovascular: NL Sounds; No Murmurs; No JVD Abdominal: NL Sounds; No Tenderness; No Distention Extremities: - - hand tremors Neurological: - - oriented.but confabulation and hallucination Result Diagrams: 08/29/19 17:57 09/01/19 06:07 Assess/Plan/Problems-Billing Assessment: Mr. Moyer is a 48 yo M with a PMH of alcoholism who was admitted on 08/29/19 with alcohol withdrawal. - Patient Problems (1) Alcohol withdrawal Current Visit: No Status: Acute Code(s): F10.239 - ALCOHOL DEPENDENCE WITH WITHDRAWAL, UNSPECIFIED SNOMED Code(s): 426784329 Comment: -Appears to be on oxaxepam,diazepam and recd lorazepam perhaps as the other was not working -Appears to respond well to IV Lorazepam today -Will stop others and keep on IV ativan [place] protocol -In Delirium Tremens -Pt is close to 72h post last drink -heavy drinker - Continue thiamine, folic acid, electrolyte replacement - Social work consult ordered (2) COPD (chronic obstructive pulmonary disease) Current Visit: Yes Status: Acute Code(s): J44.9 - CHRONIC OBSTRUCTIVE PULMONARY DISEASE, UNSPECIFIED SNOMED Code(s): 51537728 Comment: - No evidence of exacerbation - Likely contributing to his need for oxygen (3) DVT prophylaxis Current Visit: No Status: Acute Code(s): NOI3088 - SNOMED Code(s): 589567957 Comment: - Ambulatory (4) Full code status Current Visit: No Status: Acute Code(s): Z78.9 - OTHER SPECIFIED HEALTH STATUS SNOMED Code(s): 317681170 Comment: (5) Nicotine addiction Current Visit: No Status: Acute Code(s): F17.200 - NICOTINE DEPENDENCE, UNSPECIFIED, UNCOMPLICATED SNOMED Code(s): 95384987 Comment: - continue nicotine replacement. (6) Hypomagnesemia Current Visit: Yes Status: Acute Code(s): E83.42 - HYPOMAGNESEMIA SNOMED Code(s): 816311230 Comment: 2g Iv Mg today Status and Disposition: Inpatient, anticipate discharge to home when medically stable.
[2019-09-01] MEDS ORDERED: Magnesium Sulfate 2 GM IV* 2 GM/50 ML BAG IVPB ONE (17:00)
[2019-09-01] MEDS ORDERED: LORazepam INJ* 2 MG/ML 1 ML VIAL IV PUSH SCH (17:00)
[2019-09-01] MEDS ORDERED: Nicotine Patch Removal NOTE PATCH OFF SCH (21:00)
[2019-09-02 06:13] LABS: ABS Eosinophils 0.1 10^3/ul (0-0.6); ABS Lymphocytes 1.3 10^3/ul (1.0-4.8); ABS Monocytes 0.5 10^3/ul (0-0.8); ABS Neutrophils 3.3 10^3/ul (1.5-7.7); Eosinophil % 2.1 %; Hematocrit 42 % (42-52); Hemoglobin 14.1 g/dL (14.0-18.0); Lymphocyte % 25.1 %; Mean Corpuscular HGB Conc 34 g/dL (31-36); Mean Corpuscular Hemoglobin 33 pg (27-31); Mean Corpuscular Volume 98 fL (80-94); Mean Platelet Volume 8.3 fL (7.4-10.4); Platelet Count 69 10^3/uL (150-450); Red Blood Count 4.26 10^6 /uL (4.18-5.48); Red Cell Distribution Width 14 % (10-15); White Blood Count 5.3 10^3/uL (3.5-10.8)
[2019-09-02 06:18] LABS: BUN/Creatinine Ratio 12.7 (8-20); Calcium 8.6 mg/dL (8.6-10.3); EGFR African American 164.5 (>60); EGFR Non-African American 135.9 (>60); Magnesium 1.5 mg/dL (1.9-2.7); Potassium 3.3 mmol/L (3.5-5.0)
[2019-09-02] MEDS ORDERED: Magnesium Sulfate 2 GM IV* 2 GM/50 ML BAG IVPB ONE (09:06)
[2019-09-02] MEDS: Mometasone/Formoter 200/5 MDI INH SCH (09:38)
[2019-09-02] MEDS: Nicotine PATCH 21 MG/24 HR* PATCH TRANSDERM SCH (10:01)
[2019-09-02] MEDS: Thiamine TAB* 100 MG TAB PO SCH ×2 (10:02→10:05)
[2019-09-02] MEDS: Potassium Chlor TAB* 20 MEQ TAB.ER PO SCH ×2 (10:02→13:39)
[2019-09-02] MEDS: Folic Acid TAB* 1 MG PO SCH (10:03)
[2019-09-02 17:56] VITALS: BP 160/100
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
== END 2019-09-02 18:30 | disposition home or self-care (01) | DRG 775 ==
LOC: ED 17:11 → MED 21:36 → OBSVTOIN 08-30 14:52
PROVIDERS: ADMIT Internal Medicine; ATTEND Internal Medicine
DX: F10.239 Alcohol dependence with withdrawal, unspecified (principal); F17.210 Nicotine dependence, cigarettes, uncomplicated; J44.9 Chronic obstructive pulmonary disease, unspecified; D69.6 Thrombocytopenia, unspecified; K21.9 Gastro-esophageal reflux disease without esophagitis; F41.0 Panic disorder [episodic paroxysmal anxiety]; F32.9 Major depressive disorder, single episode, unspecified; E83.42 Hypomagnesemia; Z86.19 Personal history of other infectious and parasitic diseases
CPT/HCPCS: 36415; 71046; 80048; 80053; 80320; 83735; 84100; 85025; 85027; 85610; 94640; 96365; 96375; 99283; 99406; A9270-GY; G0480; J1100; J2060; J3411; J3475

== ENCOUNTER 2024-01-31 06:36 | Inpatient (IN) ==
[2024-01-31 07:32] LABS: ABS Basophils 0.3 10^3/uL (0.0-0.1); ABS Lymphocytes 1.2 10^3/uL (1.0-4.8); ABS Monocytes 0.4 10^3/uL (0.0-1.1); ABS Neutrophils 6.8 10^3/uL (1.5-7.6); Eosinophil % 0.4 %; Hemoglobin 11.7 g/dL (13.2-16.3); Lymphocyte % 14.3 %; Mean Corpuscular Hemoglobin 25.8 pg (27-33); Mean Corpuscular Hgb Conc 33.5 g/dL (31-36); Mean Corpuscular Volume 76.9 fL (80-97); Platelet Count 124 10^3/uL (150-450); Red Blood Count 4.56 10^6/uL (4.06-5.63); Red Cell Distribution Width 21.4 % (12-17); White Blood Count 8.7 10^3/uL (3.6-10.2)
[2024-01-31] MEDS: Ondansetron 4 mg VIAL 2 MG/ML 2 ml VIAL IV ONE (07:45)
[2024-01-31] MEDS: methylPREDNISolone SOD SUCC 125 mg 2 ML VIAL IV ONE (07:50)
[2024-01-31] MEDS: NS 0.9% 1000 ml BAG 1,000 ML IV ONE (07:50)
[2024-01-31 07:51] LABS: ALT 243 U/L (7-52); AST 171 U/L (13-39); Albumin 3.8 g/dL (3.2-5.2); Albumin/Globulin Ratio 1.2 (1-3); Alcohol, S 21 mg/dL (<13); Alkaline Phosphatase 98 U/L (35-149); Anion Gap 20 mmol/L (2-16); Blood Urea Nitrogen 6 mg/dL (6-24); CO2 Carbon Dioxide 22 mmol/L (22-32); Calcium 8.6 mg/dL (8.6-10.3); Chloride 88 mmol/L (101-111); Creatinine, Serum 0.69 mg/dL (0.67-1.17); Globulin 3.1 g/dL (2-4); Glucose 71 mg/dL (70-100); Potassium 3.8 mmol/L (3.5-5.0); Sodium 130 mmol/L (135-145); Total Bilirubin 2.6 mg/dL (0.2-1.0); Total Protein 6.9 g/dL (6.4-8.9); eGFR CKD-EPI 110.7 (>60)
[2024-01-31] MEDS: Thiamine 100 MG/ML 2 ml VIAL (200 mg) IM ONE ×2 (07:53→21:56)
[2024-01-31] MEDS ORDERED: Lorazepam PYXIS KEY PRN (08:30)
[2024-01-31 10:08] LABS: High Sensitivity Troponin 1 Hr 7 pg/mL (<20)
[2024-01-31] MEDS: LORazepam 2 MG/ML 1 mL Syringe IV SCH (12:22)
[2024-01-31 12:58] LABS: Hepatitis B Surface Antigen Nonreactive (Nonreactive)
[2024-01-31 13:39] LABS: Hepatitis C Antibody Reactive (Negative)
[2024-01-31] MEDS: EPINEPHrine Anaphylaxis SYR CERTADOSE SYR KIT IM ONE ×2 (14:10→16:52)
[2024-01-31] MEDS: Famotidine IV 10 MG/ML 2 ml VIAL (20 mg) IV SLOW PU ONE (14:10)
[2024-01-31] MEDS ORDERED: Albuterol 2.5mg/3 ml (0.083%) NEB.SOLN INH PRN (15:34)
[2024-01-31] MEDS ORDERED: Rocuronium 50 mg VIAL 10 mg/ml 5 ml VIAL (50 mg) ONE (17:13)
[2024-01-31] MEDS ORDERED: Etomidate 40 mg/20 ml (2 MG/ML) 20 ml VIAL (40 mg) ONE (17:13)
[2024-01-31] MEDS ORDERED: Propofol 10 MG/ML 20 ML BTL ONE (17:13)
[2024-01-31] MEDS: Propofol 10 mg/ml 100 ML BTL 1,000 MG/100 ML BTL IV SCH (17:30)
[2024-01-31 17:33] LABS: C Reactive Protein 38.82 mg/L (<8.01)
[2024-01-31] MEDS: Midazolam 2 mg/2 ml VIAL 1 mg/ml 2 ml VIAL (2 mg) IV SLOW PU ONE (18:05)
[2024-01-31] MEDS: Midazolam PREMIXBAG 1 MG/ML NS 100 ML IV SCH (18:10)
[2024-01-31] MEDS: Rocuronium 50 mg VIAL 10 mg/ml 5 ml VIAL (50 mg) ONE (18:12)
[2024-01-31] MEDS: EPINEPHrine 1 MG/ML MDV 5 MG in D5W 250 ml BAG 245 ML IV SCH (18:33)
[2024-01-31] MEDS: Propofol 10 mg/ml 100 ML BTL 1,000 MG/100 ML BTL ONE (18:34)
[2024-01-31 18:35] LABS: Urine Benzodiazepine Screen None Detected (None Detect); Urine Cannabinoids Screen Presumptive Positive (None Detect); Urine Opiates Screen None Detected (None Detect)
[2024-01-31] MEDS: Midazolam 5 mg/5 ml VIAL 1 mg/ml 5 ml VIAL (5 mg) ONE (18:35)
[2024-01-31 18:42] LABS: Direct Bilirubin Redraw 0.8 mg/dL (0.1-0.5)
[2024-01-31 19:20] LABS: Phosphorus 6.1 mg/dL (2.5-5.0)
[2024-01-31] MEDS: diazePAM INJ CARPUJECT 5 MG/ML SYRINGE IV SCH (19:41)
[2024-01-31] MEDS: cefTRIAXone 1 gm/50 mL D5W 1 GM/50 ML BAG IV SCH (20:08)
[2024-01-31 20:20] LABS: Resp Rate 14
[2024-01-31 20:21] LABS: PCO2 Arterial 61 mmHg (35-45); PO2 Arterial 128 mmHg (80-100)
[2024-01-31] MEDS: methylPREDNISolone SOD SUCC 40 mg/ml 1 ml VIAL IV SCH (20:54)
[2024-01-31] MEDS: Pantoprazole VIAL 40 MG VIAL IV SCH (20:54)
[2024-01-31] MEDS: DOXYcycline 100 MG in NS 0.9% 250 ml 250 ML IVPB SCH (21:07)
[2024-01-31 21:14] LABS: Erythrocyte Sed Rate 15 mm/Hr (0-19)
[2024-01-31] MEDS: Chlorhexidine MOUTHWASH 0.12% 15 ML UDC TOPICAL SCH (21:39)
[2024-01-31 22:48] LABS: Ferritin 508.5 ng/mL (24-336)
[2024-01-31 22:52] LABS: Folate 12.68 ng/mL (5.90-24.80)
[2024-01-31 22:57] LABS: ABS Lymphocytes 0.3 10^3/uL (1.0-4.8); ABS Monocytes 0.1 10^3/uL (0.0-1.1); ABS Neutrophils 6.7 10^3/uL (1.5-7.6); ABS Nucleated RBC 0.01 10^3/ul; Hematocrit 39.2 % (38-53); Hemoglobin 12.3 g/dL (13.2-16.3); Lymphocyte % 4.2 %; Mean Corpuscular Hemoglobin 25.2 pg (27-33); Mean Corpuscular Hgb Conc 31.5 g/dL (31-36); Mean Corpuscular Volume 80.1 fL (80-97); Mean Platelet Volume 8.6 fL (7.5-11.2); Nucleated Red Blood Cells % 0.1 %/100WBC (0.0-0.8); Platelet Count 119 10^3/uL (150-450); Red Blood Count 4.89 10^6/uL (4.06-5.63); Red Cell Distribution Width 21.8 % (12-17); White Blood Count 7.1 10^3/uL (3.6-10.2)
[2024-01-31 23:09] LABS: Albumin/Globulin Ratio 1.4 (1-3); Calcium 8.2 mg/dL (8.6-10.3); Creatinine, Serum 0.72 mg/dL (0.67-1.17); Direct Bilirubin 0.6 mg/dL (0.03-0.18); Globulin 2.9 g/dL (2-4); Indirect Bilirubin 1.4 mg/dL (0.3-1.0); Potassium 4.2 mmol/L (3.5-5.0); Total Protein 6.9 g/dL (6.4-8.9); eGFR CKD-EPI 109.2 (>60)
[2024-01-31 23:21] LABS: Anisocytosis 2+
[2024-01-31 23:22] LABS: Platelet Morphology Large
[2024-02-01 03:18] LABS: Venous Bicarbonate HCO3 22.5 mmol/L (24-28)
[2024-02-01 04:17] LABS: ABS Basophils 0.1 10^3/uL (0.0-0.1); ABS Lymphocytes 0.3 10^3/uL (1.0-4.8); ABS Monocytes 0.5 10^3/uL (0.0-1.1); ABS Neutrophils 16.3 10^3/uL (1.5-7.6); Hematocrit 33.2 % (38-53); Hemoglobin 10.7 g/dL (13.2-16.3); Mean Corpuscular Hemoglobin 25.5 pg (27-33); Mean Corpuscular Hgb Conc 32.3 g/dL (31-36); Mean Corpuscular Volume 78.8 fL (80-97); Mean Platelet Volume 8.5 fL (7.5-11.2); Platelet Count 152 10^3/uL (150-450); Red Blood Count 4.22 10^6/uL (4.06-5.63); Red Cell Distribution Width 21.8 % (12-17); White Blood Count 17.3 10^3/uL (3.6-10.2)
[2024-02-01 04:27] LABS: Albumin 3.7 g/dL (3.2-5.2); Albumin/Globulin Ratio 1.3 (1-3); Calcium 7.9 mg/dL (8.6-10.3); Creatinine, Serum 1.41 mg/dL (0.67-1.17); Direct Bilirubin 0.7 mg/dL (0.03-0.18); Globulin 2.8 g/dL (2-4); Indirect Bilirubin 0.6 mg/dL (0.3-1.0); Magnesium 1.5 mg/dL (1.9-2.7); Potassium 3.9 mmol/L (3.5-5.0); Total Bilirubin 1.3 mg/dL (0.2-1.0); Total Protein 6.5 g/dL (6.4-8.9); eGFR CKD-EPI 59.6 (>60)
[2024-02-01] MEDS ORDERED: Dextrose 50% Syringe 50 ml 25 GM/50 ML SYRINGE IV PUSH PRN (06:15)
[2024-02-01] MEDS: Lactated Ringers 1000 ml BAG 1,000 ML IV ONE (06:24)
[2024-02-01] MEDS ORDERED: Thiamine 100 MG/ML 2 ml VIAL 100 MG in NS 0.9% 50 ML 50 ML IV SCH (07:00)
[2024-02-01] MEDS: Multivitamins/Minerals TAB PO SCH (07:25)
[2024-02-01] MEDS: Magnesium Sulf 4 GM/100 ML IV 4,000 MG/100 ML BAG IVPB ONE (09:21)
[2024-02-01] MEDS: Propofol 10 mg/ml 100 ML BTL 1,000 MG/100 ML BTL IV SCH (09:24)
[2024-02-01] MEDS: Thiamine 100 MG/ML 2 ml VIAL 100 MG in NS 0.9% 50 ML 50 ML IV SCH (10:48)
[2024-02-01 11:24] LABS: Urine Appearance Extra Turbid; Urine Bilirubin Negative (Negative); Urine Blood Negative (Negative); Urine Color Yellow; Urine Glucose 3+ (>=300 mg/dL) (Negative); Urine Ketones 1+ (Negative); Urine Nitrite Negative (Negative); Urine Protein 1+ (>=30 mg/dL) (Negative); Urine Specific Gravity 1.023 (1.002-1.030); Urine Urobilinogen Negative (Negative)
[2024-02-01] MEDS: NS 0.9% 1000 ml BAG 1,000 ML IV ONE (11:24)
[2024-02-01 11:30] LABS: HDL Cholesterol 65.6 mg/dL
[2024-02-01 11:36] LABS: Urine Amorphous Crystals Present /HPF (Absent); Urine Bacteria Absent /HPF (Absent); Urine Red Blood Cell Absent /HPF (0-Trace); Urine Squamous Epithelial Cell Present /HPF (Absent); Urine White Blood Cell Absent /HPF (0-Trace)
[2024-02-01 16:16] LABS: Resp Rate 24
[2024-02-01 16:18] LABS: PCO2 Arterial 35 mmHg (35-45); PO2 Arterial 74 mmHg (80-100)
[2024-02-01 17:47] LABS: Resp Rate 22
[2024-02-01 17:53] LABS: PCO2 Arterial 35 mmHg (35-45); PO2 Arterial 71 mmHg (80-100)
[2024-02-01] MEDS: Enoxaparin 40 MG/0.4 ML SYR SUBCUT SCH (19:19)
[2024-02-01 20:13] LABS: PCO2 Arterial 37 mmHg (35-45); PO2 Arterial 75 mmHg (80-100)
[2024-02-02] MEDS: Lactated Ringers 1000 ml BAG 1,000 ML IV SCH (00:48)
[2024-02-02 04:55] LABS: ABS Lymphocytes 0.6 10^3/uL (1.0-4.8); ABS Monocytes 0.6 10^3/uL (0.0-1.1); ABS Neutrophils 15.2 10^3/uL (1.5-7.6); ABS Nucleated RBC 0.01 10^3/ul; Hematocrit 33.3 % (38-53); Hemoglobin 10.6 g/dL (13.2-16.3); Lymphocyte % 3.7 %; Mean Corpuscular Hemoglobin 25.5 pg (27-33); Mean Corpuscular Hgb Conc 31.8 g/dL (31-36); Mean Corpuscular Volume 80.3 fL (80-97); Platelet Count 105 10^3/uL (150-450); Red Blood Count 4.15 10^6/uL (4.06-5.63); Red Cell Distribution Width 22.3 % (12-17); White Blood Count 16.5 10^3/uL (3.6-10.2)
[2024-02-02 05:59] LABS: ALT 113 U/L (7-52); Albumin 3.5 g/dL (3.2-5.2); Albumin/Globulin Ratio 1.3 (1-3); Alkaline Phosphatase 58 U/L (35-149); Blood Urea Nitrogen 13 mg/dL (6-24); CO2 Carbon Dioxide 24 mmol/L (22-32); Calcium 8.2 mg/dL (8.6-10.3); Chloride 96 mmol/L (101-111); Creatinine, Serum 0.89 mg/dL (0.67-1.17); Globulin 2.6 g/dL (2-4); Glucose 119 mg/dL (70-100); Sodium 130 mmol/L (135-145); Total Bilirubin 0.8 mg/dL (0.2-1.0); Total Protein 6.1 g/dL (6.4-8.9); eGFR CKD-EPI 102.5 (>60)
[2024-02-02 06:33] LABS: Anion Gap 10 mmol/L (2-16)
[2024-02-02 07:34] LABS: Magnesium 2.6 mg/dL (1.9-2.7); Potassium Redraw 4.2 mmol/L (3.5-5.0)
[2024-02-02] MEDS: fentaNYL 100 mcg/2 ml 50 MCG/ML VIAL IV SLOW PU ONE (11:35)
[2024-02-02] MEDS: Iohexol 350 (CONTRAST) 500 ML MDV IV ONE (11:47)
[2024-02-02] MEDS: Rocuronium 50 mg VIAL 10 mg/ml 5 ml VIAL (50 mg) ONE (11:57)
[2024-02-02] MEDS: Rocuronium 50 mg VIAL 10 mg/ml 5 ml VIAL (50 mg) IV ONE (11:57)
[2024-02-02] MEDS: fentaNYL 100 mcg/2 ml 50 MCG/ML VIAL ONE (12:03)
[2024-02-02] MEDS ORDERED: fentaNYL 100 mcg/2 ml 50 MCG/ML VIAL IV SLOW PU SCH (20:00)
[2024-02-03] MEDS: fentaNYL 100 mcg/2 ml 50 MCG/ML VIAL IV SLOW PU PRN (04:04)
[2024-02-03 04:27] LABS: ABS Eosinophils 0.1 10^3/uL (0.0-0.5); ABS Lymphocytes 0.5 10^3/uL (1.0-4.8); ABS Monocytes 0.5 10^3/uL (0.0-1.1); ABS Neutrophils 10.5 10^3/uL (1.5-7.6); ABS Nucleated RBC 0.01 10^3/ul; Hematocrit 31.5 % (38-53); Hemoglobin 10.2 g/dL (13.2-16.3); Lymphocyte % 4.6 %; Mean Corpuscular Hemoglobin 25.8 pg (27-33); Mean Corpuscular Hgb Conc 32.5 g/dL (31-36); Mean Corpuscular Volume 79.4 fL (80-97); Mean Platelet Volume 8.5 fL (7.5-11.2); Nucleated Red Blood Cells % 0.1 %/100WBC (0.0-0.8); Platelet Count 114 10^3/uL (150-450); Red Blood Count 3.97 10^6/uL (4.06-5.63); Red Cell Distribution Width 22.2 % (12-17); White Blood Count 11.8 10^3/uL (3.6-10.2)
[2024-02-03 04:33] LABS: INR 0.91 (0.83-1.13)
[2024-02-03 05:18] LABS: Anion Gap 6 mmol/L (2-16); CO2 Carbon Dioxide 27 mmol/L (22-32); Calcium 8.1 mg/dL (8.6-10.3); Chloride 98 mmol/L (101-111); Glucose 129 mg/dL (70-100); Sodium 131 mmol/L (135-145); eGFR CKD-EPI 105.8 (>60)
[2024-02-03 05:19] LABS: ALT 92 U/L (7-52); Albumin 3.2 g/dL (3.2-5.2); Albumin/Globulin Ratio 1.3 (1-3); Alkaline Phosphatase 55 U/L (35-149); Globulin 2.5 g/dL (2-4); Total Bilirubin 0.7 mg/dL (0.2-1.0); Total Protein 5.7 g/dL (6.4-8.9)
[2024-02-03 06:25] LABS: Blood Urea Nitrogen 15 mg/dL (6-24)
[2024-02-03 06:44] LABS: Magnesium 2.3 mg/dL (1.9-2.7)
[2024-02-03] MEDS: Dexmedetomidine 1,000 MCG in NS 0.9% 250 ml 240 ML IV SCH (11:53)
[2024-02-03 12:54] LABS: Potassium Redraw 4.2 mmol/L (3.5-5.0)
[2024-02-03] MEDS: Multivitamins ADULT w/MIN LIQ 15 ML UDC G TUBE SCH (12:54)
[2024-02-03 13:36] LABS: Resp Rate 22
[2024-02-03 13:39] LABS: PCO2 Arterial 36 mmHg (35-45)
[2024-02-03 13:41] LABS: PO2 Arterial 58 mmHg (80-100)
[2024-02-03 15:12] LABS: PCO2 Arterial 41 mmHg (35-45); PO2 Arterial 69 mmHg (80-100)
[2024-02-03] MEDS: Labetalol IV 5 MG/ML 20 ml VIAL IV PUSH ONE (15:20)
[2024-02-04 05:57] LABS: Hematocrit 30.6 % (38-53); Mean Corpuscular Hemoglobin 26.1 pg (27-33); Mean Corpuscular Hgb Conc 32.6 g/dL (31-36); Mean Corpuscular Volume 80.2 fL (80-97); Mean Platelet Volume 8.3 fL (7.5-11.2); Platelet Count 124 10^3/uL (150-450); Red Blood Count 3.82 10^6/uL (4.06-5.63); White Blood Count 7.8 10^3/uL (3.6-10.2)
[2024-02-04 06:39] LABS: Calcium 8.4 mg/dL (8.6-10.3); Creatinine, Serum 0.81 mg/dL (0.67-1.17); Magnesium 2.4 mg/dL (1.9-2.7); Phosphorus 4.5 mg/dL (2.5-5.0); Potassium 4.9 mmol/L (3.5-5.0); eGFR CKD-EPI 105.4 (>60)
[2024-02-04 07:57] LABS: ABS Lymphocytes 0.5 10^3/uL (1.0-4.8); ABS Monocytes 0.6 10^3/uL (0.0-1.1); ABS Neutrophils 6.7 10^3/uL (1.5-7.6); Lymphocyte % 6.8 %
[2024-02-04] MEDS: Sulfur Hexaflouride MICROSPHR 25 MG VIAL IV ONE (09:16)
[2024-02-04] MEDS: Nicotine PATCH 21 MG/24 HR PATCH TRANSDERM SCH (15:23)
[2024-02-04] MEDS ORDERED: Nicotine GUM 2MG FRUIT FLAVOR PO PRN (16:17)
[2024-02-04] MEDS: Labetalol IV 5 MG/ML 20 ml VIAL IV PUSH ONE (17:33)
[2024-02-05] MEDS: LORazepam PO 0-6 for WAM protocol PO SCH (04:35)
[2024-02-05 04:47] LABS: Hematocrit 33.8 % (38-53); Hemoglobin 11.1 g/dL (13.2-16.3); Mean Corpuscular Hemoglobin 26.1 pg (27-33); Mean Corpuscular Hgb Conc 32.9 g/dL (31-36); Mean Corpuscular Volume 79.4 fL (80-97); Mean Platelet Volume 7.9 fL (7.5-11.2); Platelet Count 141 10^3/uL (150-450); Red Blood Count 4.26 10^6/uL (4.06-5.63); White Blood Count 11.4 10^3/uL (3.6-10.2)
[2024-02-05 05:03] LABS: Albumin 3.6 g/dL (3.2-5.2); Albumin/Globulin Ratio 1.4 (1-3); Calcium 8.9 mg/dL (8.6-10.3); Creatinine, Serum 0.97 mg/dL (0.67-1.17); Globulin 2.6 g/dL (2-4); Magnesium 1.8 mg/dL (1.9-2.7); Potassium 3.7 mmol/L (3.5-5.0); Total Bilirubin 0.6 mg/dL (0.2-1.0); Total Protein 6.2 g/dL (6.4-8.9); eGFR CKD-EPI 93.3 (>60)
[2024-02-05 05:09] LABS: ABS Eosinophils 0.2 10^3/uL (0.0-0.5); ABS Lymphocytes 2.6 10^3/uL (1.0-4.8); ABS Monocytes 1.5 10^3/uL (0.0-1.1); ABS Neutrophils 7.1 10^3/uL (1.5-7.6); ABS Nucleated RBC 0.01 10^3/ul; Eosinophil % 1.9 %; Nucleated Red Blood Cells % 0.1 %/100WBC (0.0-0.8)
[2024-02-05] MEDS: Magnesium Sulfate 2 gm BAG 2 GM/50 ML BAG IVPB ONE (09:20)
[2024-02-05] MEDS: Metoprolol Tartrate 5 mg VIAL 5 ml VIAL (1 mg/ml) IV ONE (09:23)
[2024-02-05] MEDS: Bacitracin OINTMENT TUBE TOPICAL SCH (15:40)
[2024-02-06 05:20] LABS: Hematocrit 30.2 % (38-53); Hemoglobin 9.9 g/dL (13.2-16.3); Mean Corpuscular Hgb Conc 32.9 g/dL (31-36); Mean Corpuscular Volume 79.2 fL (80-97); Mean Platelet Volume 7.5 fL (7.5-11.2); Platelet Count 136 10^3/uL (150-450); Red Blood Count 3.82 10^6/uL (4.06-5.63); Red Cell Distribution Width 22.4 % (12-17); White Blood Count 9.4 10^3/uL (3.6-10.2)
[2024-02-06 05:51] LABS: Calcium 8.3 mg/dL (8.6-10.3); Creatinine, Serum 0.87 mg/dL (0.67-1.17); Magnesium 1.9 mg/dL (1.9-2.7); Phosphorus 5.1 mg/dL (2.5-5.0); Potassium 3.5 mmol/L (3.5-5.0); eGFR CKD-EPI 103.2 (>60)
[2024-02-06 06:10] LABS: ABS Basophils 0.1 10^3/uL (0.0-0.1); ABS Eosinophils 0.2 10^3/uL (0.0-0.5); ABS Lymphocytes 2.2 10^3/uL (1.0-4.8); ABS Monocytes 1.6 10^3/uL (0.0-1.1); ABS Neutrophils 5.4 10^3/uL (1.5-7.6); Eosinophil % 1.9 %; Lymphocyte % 23.1 %
[2024-02-06] MEDS ORDERED: ceFAZolin 2 GM in NS PREMIX 2 GM/100 ML BAG IVPB SCH (08:00)
[2024-02-06] MEDS: Multivitamins ADULT w/MIN LIQ 15 ML UDC PO SCH (08:07)
[2024-02-06] MEDS: Potassium Chlor 20 meq TAB.ER PO ONE ×2 (08:10→10:39)
[2024-02-06] MEDS: ceFAZolin 2 GM PREMIX 2 GM/50 ML BAG IV SCH (10:28)
[2024-02-07 05:06] LABS: Hematocrit 29.4 % (38-53); Hemoglobin 9.8 g/dL (13.2-16.3); Mean Corpuscular Hemoglobin 26.6 pg (27-33); Mean Corpuscular Hgb Conc 33.5 g/dL (31-36); Mean Corpuscular Volume 79.5 fL (80-97); Mean Platelet Volume 7.7 fL (7.5-11.2); Platelet Count 149 10^3/uL (150-450); Red Blood Count 3.69 10^6/uL (4.06-5.63); Red Cell Distribution Width 23.1 % (12-17); White Blood Count 8.3 10^3/uL (3.6-10.2)
[2024-02-07 05:54] LABS: Albumin 3.3 g/dL (3.2-5.2); Albumin/Globulin Ratio 1.4 (1-3); Calcium 8.1 mg/dL (8.6-10.3); Creatinine, Serum 1.03 mg/dL (0.67-1.17); Globulin 2.3 g/dL (2-4); Magnesium 2.1 mg/dL (1.9-2.7); Potassium 3.7 mmol/L (3.5-5.0); Total Bilirubin 0.5 mg/dL (0.2-1.0); Total Protein 5.6 g/dL (6.4-8.9); eGFR CKD-EPI 86.9 (>60)
[2024-02-07 07:16] LABS: ABS Basophils 0.1 10^3/uL (0.0-0.1); ABS Eosinophils 0.2 10^3/uL (0.0-0.5); ABS Lymphocytes 1.9 10^3/uL (1.0-4.8); ABS Monocytes 1.8 10^3/uL (0.0-1.1); ABS Neutrophils 4.4 10^3/uL (1.5-7.6); Lymphocyte % 22.5 %
[2024-02-07] MEDS: Sulfamethox/Trimethoprim DS TAB 800/160 mg PO SCH (09:50)
[2024-02-07 12:46] VITALS: BP 140/95
== END 2024-02-07 11:29 | disposition home or self-care (01) | DRG 811 ==
LOC: ED 06:36 → EDHOLD 15:30 → ICU 16:53
PROVIDERS: ADMIT Internal Medicine Pulmonary Disease; ATTEND Internal Medicine Pulmonary Disease